=== PATIENT | female | born 1995 | race African-American/Black ===

== ENCOUNTER → 2018-03-07 | Outpatient (CLI) | payer OTHER | END | disposition home or self-care (01) | LOC: US 10:49 | DX: O26.842 Uterine size-date discrepancy, second trimester (principal); O32.1XX0 Maternal care for breech presentation, not applicable or unspecified; Z3A.18 18 weeks gestation of pregnancy | CPT/HCPCS: 76805 ==

== ENCOUNTER → 2018-06-06 | Outpatient (CLI) | payer OTHER | END | disposition home or self-care (01) | LOC: ECHO 08:08 | DX: R42 Dizziness and giddiness (principal) | CPT/HCPCS: 93306 ==

== ENCOUNTER → 2018-06-19 | Outpatient (CLI) | payer OTHER ==
[2015-11-01 14:11] VITALS: BP 129/80
--- NOTE | 2018-06-19 14:59 | RAD ---
EXAM: Obstetrics sonogram. HISTORY: Size and dates discrepancy. TECHNIQUE: Sonographic imaging of a gravid uterus was performed. COMPARISON: None. FINDINGS: There is a single intrauterine fetus in cephalic presentation with a heart rate of 133 beats per minute. The cervix is closed and measures 4.6 cm in length. There is a fundal placenta without evidence of placenta previa. The amniotic fluid index is normal 11.2 cm. The biparietal diameter is 8.39 cm, corresponding with 33 weeks and 5 days. The head circumference is 30.59 cm, corresponding with 34 weeks and 0 days. The abdominal circumference is 29.08 cm, corresponding with 33 weeks and 1 day. The femoral length is 6.75 cm, corresponding with 34 weeks and 5 days. The estimated gestational age patient combined ultrasound measurements is 33 weeks and 6 days and the EDC is 08/01/2018. The estimated weight is 2259 g. This corresponds with the 36th percentile for gestational age based on LMP. IMPRESSION: Single intrauterine fetus in cephalic presentation with with a heart rate of 133 beats parotid and an estimated gestational age based on ultrasound measurements of 33 weeks and 6 days. The estimated weight is at the 36th percentile for gestational age based on LMP. Electronically signed by: Laila Rajput MD (06/19/2018 2:56 PM) [place] [id number]
== END | disposition home or self-care (01) ==
LOC: US 12:14
PROVIDERS: ATTEND Obstetrics & Gynecology
DX: O26.843 Uterine size-date discrepancy, third trimester (principal); Z3A.33 33 weeks gestation of pregnancy
CPT/HCPCS: 76805

== ENCOUNTER 2018-07-23 07:28 | Inpatient (IN) | payer OTHER ==
[2018-07-23] VITALS (7 sets, daily range): BP systolic 91–130; BP diastolic 48–80
[~2018-07-23] VITALS: Ht 152.4 cm; Wt 84.8 kg
[2018-07-23] MEDS ORDERED: OXYTOCIN 30 UNIT/500 ML PREMIX 500 ML IV PRN ×3 (08:45→11:45)
[2018-07-23] MEDS ORDERED: CITRIC ACID/SODIUM CITRATE 30 ML SOLUTION. PO ONE (08:45)
[2018-07-23] MEDS ORDERED: 0.9 % SODIUM CHLORIDE 10 ML DISP.SYRIN. IV PRN ×2 (08:45→11:45)
[2018-07-23] MEDS: IV RINGERS,LACTATED 1000ML 1,000 ML IV SCH ×4 (09:01→20:35)
[2018-07-23 09:10] LABS: BASO # 0.1 x10^3/uL (0.0-0.2); BASO % 0 % (0-3); EOS # 0.2 x10^3/uL (0.0-0.7); EOS % 1 % (0-3); HEMATOCRIT 31.3 % (36.0-47.0); HEMOGLOBIN 10.8 g/dL (12.0-15.5); LYMPH # 3.4 x10^3/uL (1.0-4.8); LYMPH % 18 % (24-48); MEAN CORPUSCULAR HEMOGLOBIN 30 pg (25-35); MEAN CORPUSCULAR HGB CONC 35 g/dL (31-37); MEAN CORPUSCULAR VOLUME 86 fL (79-100); MONO # 1.1 x10^3/uL (0.0-1.1); MONO % 6 % (0-9); NEUT # 13.8 x10^3uL (1.8-7.7); NEUT % 74 % (31-73); PLATELET COUNT 226 x10^3/uL (140-400); RED BLOOD COUNT 3.64 x10^6/uL (3.50-5.40); RED CELL DISTRIBUTION WIDTH 14.2 % (11.5-14.5); WHITE BLOOD COUNT 18.6 x10^3/uL (4.0-11.0)
--- NOTE | 2018-07-23 09:15 | PDOC1 ---
OB - History Hx of Present Care: Good Care Ultrasounds: Normal mid trimester US Obstetrical Complications: None Medical Complications: None Past Family/Social History * Past Medical, Surgical, Family and Obstetric Histories reviewed from chart. Rubella: Immune RPR/VDRL: Negative GBS Status: Negative HBsAG: Negative OB - Chief Complaint & HPI Date of Admission: Date of Admission: Jul 23, 2018 at 07:28 Chief Complaint/History : 3 Para: 2 EGA: 39 Reason for admission: section Indication for : desires repeat Admission Nurse Assessment Rev: Yes OB - Admission Exam Physical Exam Vitals: VS - Last 72 Hours, by Label Date Time Temp Pulse Resp B/P (MAP) Pulse Ox O2 Delivery O2 Flow Rate FiO2 07/23/18 09:06 98.7 97 18 92/48 (63) 100 Room Air 98.7 HEENT: Normal Heart: Regular Rate Lungs: Clear Abdomen: Gravid, Non tender, Soft Extremities: Edema Reflexes: Normal Cervical Dilatation: 1cm Effacement: 50% Station: -3 Membranes: Intact Heart Rate: Normal Accelerations: Accelerations Present Decelerations: No decelerations Contractions on Admission: >10 Minutes Apart Intensity: Mild Text A: 39 wks IUP Previous c/s x 2 P: Admit for repeat c/s. SHERIF ESCALANTE Jr, MD Jul 23, 2018 09:15
[2018-07-23] MEDS ORDERED: BUPIVACAINE MPF 0.75% DEXTROSE 2 ML AMPUL. ONE (10:01)
[2018-07-23] MEDS ORDERED: fentaNYL PF VIAL 100 MCG/2 ML VIAL ONE (10:01)
[2018-07-23] MEDS ORDERED: MORPHINE PF 5 MG/10 ML VIAL. ONE (10:01)
[2018-07-23] MEDS ORDERED: PHENYLEPHRINE in 0.9% NACL PF 1 MG/10 ML SYRINGE. IV ONE (10:01)
[2018-07-23] MEDS ORDERED: OXYTOCIN 10 UNIT/ML VIAL. ONE ×3 (10:02)
[2018-07-23] MEDS ORDERED: ONDANSETRON PF 4 MG/2 ML VIAL. ONE (10:02)
[2018-07-23 10:05] LABS: BILIRUBIN,URINE NEGATIVE (NEG); CLARITY,URINE CLEAR; COLOR,URINE YELLOW; NITRITE,URINE NEGATIVE (NEG); PROTEIN,URINE NEGATIVE (NEG-TRACE)
[2018-07-23 10:09] LABS: SQUAMOUS EPITHELIAL CELL,UR FEW /LPF
[2018-07-23 10:10] LABS: BACTERIA,URINE FEW /HPF (0-FEW); RBC,URINE 0 /HPF (0-2)
[2018-07-23 10:15] LABS: % BANDS 6 % (0-9); % LYMPHS 15 % (24-48); % MONOS 5 % (0-10); % SEGS 74 % (35-66); PLT ESTIMATE ADEQUATE (ADEQUATE)
[2018-07-23] MEDS ORDERED: DEXAMETHASONE SOD PHOS 20 MG/5 ML VIAL. ONE (11:14)
--- NOTE | 2018-07-23 11:42 | PDOC4 ---
OB Operative Note Date: Jul 23, 2018 PRE OP DIAGNOSIS: Previoujs C- section POST OP DIAGNOSIS: Previous C- section OPERATION PERFORMED: R [facility] Surgeon Dr. Navas Anesthesia: Regional (Spinal) Blood Loss 600 ml Specimen placenta and OB Findings: Position (Vertex), Sex (Male), (8/9), Weight (2965 Gram) Complications none Additional Remarks pt. SHERIF Bautista Jr, MD Jul 23, 2018 11:42
[2018-07-23] MEDS ORDERED: SIMETHICONE 80 MG TAB.CHEW PO PRN (11:45)
[2018-07-23] MEDS ORDERED: KETOROLAC 30 MG/ML VIAL. IV PRN (11:45)
[2018-07-23] MEDS ORDERED: diphenhydrAMINE ORAL ELIXIR 12.5 MG/5 ML ML PO PRN (11:45)
[2018-07-23] MEDS ORDERED: MAG HYDROX/ALUMINUM HYD/SIMETH 30 ML ORAL.SUSP PO PRN (11:45)
[2018-07-23] MEDS ORDERED: oxyCODONE/APAP 5/325 1 TAB TABLET PO PRN (11:45)
[2018-07-23] MEDS ORDERED: ZOLPIDEM 5 MG TABLET. PO PRN (11:45)
[2018-07-23] MEDS ORDERED: ONDANSETRON PF 4 MG/2 ML VIAL. IV PRN (11:45)
--- NOTE | 2018-07-23 12:01 | OP ---
DATE OF SURGERY: 07/23/2018 PREOPERATIVE DIAGNOSES: 1. 39 weeks intrauterine . 2. Previous section x 2. POSTOPERATIVE DIAGNOSES: 1. 39 weeks intrauterine . 2. Previous section x 2. PROCEDURE: Repeat low transverse section. SURGEON: Sherif Navas MD. ANESTHESIA: Spinal. ESTIMATED BLOOD LOSS: 600 mL. COMPLICATIONS: None. FINDINGS: Viable male , Apgars 8 and 9, weight 2965 grams. Three-vessel cord placenta delivered manually intact. SUMMARY: A 23-year-old 3, para 2 at 39 weeks, presented for repeat section. She was counseled on the risks, benefits and expectations and voiced a clear understanding to proceed. DESCRIPTION OF PROCEDURE: The patient was taken to surgery suite and placed in dorsal supine position. She was prepped with ChloraPrep and draped in sterile fashion. After adequate anesthesia, a Pfannenstiel skin incision was made with scalpel down to and through the fascia. Fascia was extended laterally using curved Walden scissors. The superior edge of the fascia was grasped with 2 Caleb clamps and dissected free of the abdominal rectus muscle using blunt dissection along with Bovie cautery. The same process took place inferiorly. The peritoneum was already entered and further dissected with Metzenbaum scissors and curved Walden scissors inferiorly. There were a few peritoneal adhesions to the uterus, which were dissected using blunt dissection along with Bovie cautery and Metzenbaum scissors. The Skinny ring retractor was placed. A low transverse hysterotomy incision was made with scalpel down to the amniotic sac. Hysterotomy incision was extended laterally and superiorly digitally. Amniotomy was performed with Allis clamp, which elicited a moderate amount of clear fluid. With the aid of fundal pressure, the 's head was delivered in a smooth atraumatic manner. With additional fundal pressure, the anterior shoulder was delivered followed by posterior shoulder and rest of male was delivered. Infant was suctioned with a bulb syringe orally and nasally, umbilical cord was clamped twice and cut and viable male was handed to waiting nursing staff. Umbilical cord blood was then obtained. Three-vessel cord placenta was delivered manually intact. The uterus was then exteriorized and cleared of clot and debris with a moist lap. Hysterotomy incision was reapproximated using 1-0 Vicryl suture in running locked fashion. Uterus palpated firm. Fallopian tubes and ovaries appeared normal bilaterally. Posterior cul-de-sac was cleared of clot and debris with a moist lap. The uterus then returned to the abdomen. The pericolic gutters were cleared of clot and debris with a moist lap. Interceed was placed over the hysterotomy incision in an inverted T fashion. The Skinny ring retractor was removed. The peritoneum was reapproximated with 1-0 Vicryl suture in running fashion. Fascia was reapproximated using 0 Vicryl suture in running fashion. Skin was reapproximated using 4-0 Vicryl suture in subcuticular manner. The patient tolerated the procedure well and was sent to recovery room in stable condition. Sponge and needle count correct x 3. SHERIF NAVAS MD DR: NASIM/víctor JOB#: [id number] / [id number]
[2018-07-23] MEDS: KETOROLAC 30 MG/ML VIAL. IV PRN ×2 (13:03→19:46)
[2018-07-23] MEDS ORDERED: METOCLOPRAMIDE HCL 10 MG/2 ML VIAL. IV PRN (14:15)
[2018-07-23] MEDS: FERROUS SULFATE 325 MG TABLET. PO SCH (17:00)
[2018-07-24 01:02] VITALS: BP 109/62
[2018-07-24] MEDS: KETOROLAC 30 MG/ML VIAL. IV PRN (02:47)
[2018-07-24 05:53] LABS: BASO % 0 % (0-3); EOS # 0.1 x10^3/uL (0.0-0.7); EOS % 1 % (0-3); HEMATOCRIT 22.3 % (36.0-47.0); HEMOGLOBIN 7.7 g/dL (12.0-15.5); LYMPH # 2.8 x10^3/uL (1.0-4.8); LYMPH % 19 % (24-48); MEAN CORPUSCULAR HEMOGLOBIN 30 pg (25-35); MEAN CORPUSCULAR HGB CONC 35 g/dL (31-37); MEAN CORPUSCULAR VOLUME 87 fL (79-100); MONO # 1.1 x10^3/uL (0.0-1.1); MONO % 8 % (0-9); NEUT # 10.5 x10^3uL (1.8-7.7); NEUT % 72 % (31-73); PLATELET COUNT 174 x10^3/uL (140-400); RED BLOOD COUNT 2.57 x10^6/uL (3.50-5.40); RED CELL DISTRIBUTION WIDTH 13.7 % (11.5-14.5); WHITE BLOOD COUNT 14.6 x10^3/uL (4.0-11.0)
[2018-07-24 06:00] VITALS: BP 113/67
[2018-07-24] MEDS: IBUPROFEN 800 MG TABLET. PO PRN ×3 (08:31→23:48)
[2018-07-24] MEDS: FERROUS SULFATE 325 MG TABLET. PO SCH ×2 (08:32→16:18)
[2018-07-24] MEDS: DOCUSATE SODIUM 100 MG CAPSULE. PO PRN ×2 (08:32→19:34)
[2018-07-24] MEDS: GABAPENTIN 300 MG CAPSULE. PO SCH ×4 (08:33→23:49)
[2018-07-24 11:00] VITALS: BP 113/68
[2018-07-24] MEDS: HYDROcodone/APAP 5/325MG 1 TAB TABLET PO PRN ×4 (11:59→23:48)
--- NOTE | 2018-07-24 12:51 | PDOC ---
OB Progress Note Date of Service 07/24/18 Time of Evaluation 1250 Notes Pt. feeling well. Pain better controlled. Lab Laboratory Tests Test 07/23/18 08:40 07/23/18 09:50 07/24/18 04:50 White Blood Count 18.6 x10^3/uL (4.0-11.0) 14.6 x10^3/uL (4.0-11.0) Red Blood Count 3.64 x10^6/uL (3.50-5.40) 2.57 x10^6/uL (3.50-5.40) Hemoglobin 10.8 g/dL (12.0-15.5) 7.7 g/dL (12.0-15.5) Hematocrit 31.3 % (36.0-47.0) 22.3 % (36.0-47.0) Mean Corpuscular Volume 86 fL (79-100) 87 fL (79-100) Mean Corpuscular Hemoglobin 30 pg (25-35) 30 pg (25-35) Mean Corpuscular Hemoglobin Concent 35 g/dL (31-37) 35 g/dL (31-37) Red Cell Distribution Width 14.2 % (11.5-14.5) 13.7 % (11.5-14.5) Platelet Count 226 x10^3/uL (140-400) 174 x10^3/uL (140-400) Neutrophils (%) (Auto) 74 % (31-73) 72 % (31-73) Lymphocytes (%) (Auto) 18 % (24-48) 19 % (24-48) Monocytes (%) (Auto) 6 % (0-9) 8 % (0-9) Eosinophils (%) (Auto) 1 % (0-3) 1 % (0-3) Basophils (%) (Auto) 0 % (0-3) 0 % (0-3) Neutrophils # (Auto) 13.8 x10^3uL (1.8-7.7) 10.5 x10^3uL (1.8-7.7) Lymphocytes # (Auto) 3.4 x10^3/uL (1.0-4.8) 2.8 x10^3/uL (1.0-4.8) Monocytes # (Auto) 1.1 x10^3/uL (0.0-1.1) 1.1 x10^3/uL (0.0-1.1) Eosinophils # (Auto) 0.2 x10^3/uL (0.0-0.7) 0.1 x10^3/uL (0.0-0.7) Basophils # (Auto) 0.1 x10^3/uL (0.0-0.2) 0.0 x10^3/uL (0.0-0.2) Segmented Neutrophils % 74 % (35-66) Band Neutrophils % 6 % (0-9) Lymphocytes % 15 % (24-48) Monocytes % 5 % (0-10) Platelet Estimate Adequate (ADEQUATE) Treponema pallidum Antibody Nonreactive (Nonreactive) Urine Collection Type U cath Urine Color Yellow Urine Clarity Clear Urine pH 7.0 Urine Specific [place] 1.020 Urine Protein Negative mg/dL (NEG-TRACE) Urine Glucose (UA) Negative mg/dL (NEG) Urine Ketones (Stick) Negative mg/dL (NEG) Urine Blood Negative (NEG) Urine Nitrite Negative (NEG) Urine Bilirubin Negative (NEG) Urine Urobilinogen Dipstick 1.0 mg/dL (0.2 mg/dL) Urine Leukocyte Esterase Trace (NEG) Urine RBC 0 /HPF (0-2) Urine WBC 5-10 /HPF (0-4) Urine Squamous Epithelial Cells Few /LPF Urine Transitional Epithelial Cells Few /LPF Urine Bacteria Few /HPF (0-FEW) Laboratory Tests Test 07/24/18 04:50 White Blood Count 14.6 x10^3/uL (4.0-11.0) Red Blood Count 2.57 x10^6/uL (3.50-5.40) Hemoglobin 7.7 g/dL (12.0-15.5) Hematocrit 22.3 % (36.0-47.0) Mean Corpuscular Volume 87 fL (79-100) Mean Corpuscular Hemoglobin 30 pg (25-35) Mean Corpuscular Hemoglobin Concent 35 g/dL (31-37) Red Cell Distribution Width 13.7 % (11.5-14.5) Platelet Count 174 x10^3/uL (140-400) Neutrophils (%) (Auto) 72 % (31-73) Lymphocytes (%) (Auto) 19 % (24-48) Monocytes (%) (Auto) 8 % (0-9) Eosinophils (%) (Auto) 1 % (0-3) Basophils (%) (Auto) 0 % (0-3) Neutrophils # (Auto) 10.5 x10^3uL (1.8-7.7) Lymphocytes # (Auto) 2.8 x10^3/uL (1.0-4.8) Monocytes # (Auto) 1.1 x10^3/uL (0.0-1.1) Eosinophils # (Auto) 0.1 x10^3/uL (0.0-0.7) Basophils # (Auto) 0.0 x10^3/uL (0.0-0.2) Medications Current Medications Ketorolac Tromethamine (Toradol 30mg Vial) 30 mg PRN Q6HRS PRN IV PAIN Last administered on 07/24/18at 02:47; Start 07/23/18 at 08:00; Stop 07/24/18 at 11:17 ; Status DC Sodium Chloride (Normal Saline Flush) 3 ml QSHIFT PRN IV AFTER MEDS AND BLOOD DRAWS; Start 07/23/18 at 08:45; Status Cancel Ringer's Solution 1,000 ml @ 125 mls/hr Q8H IV Last administered on 07/23/18at 20:35; Start 07/23/18 at 08:42 Oxytocin/Sodium Chloride 500 ml @ 0 mls/hr CONT PRN IV SEE I/O RECORD; Start at 08:45; Stop 07/24/18 at 11:18; Status DC Oxytocin/Sodium Chloride 500 ml @ 0 mls/hr CONT PRN PRN IV Post delivery bleeding; Start 07/23/18 at 08:45 Cefazolin Sodium/ Dextrose 50 ml @ 100 mls/hr 1X ONCE IV Last administered on 07/23/18at 09:20; Start 07/23/18 at 08:45; Stop 07/23/18 at 09:14; Status DC Citric Acid/ Sodium Citrate (Bicitra) 30 ml 1X ONCE PO Last administered on at 09:19; Start 07/23/18 at 08:45; Stop 07/23/18 at 09:12; Status DC Morphine Sulfate (Morphine Preservative Free) 5 mg STK-MED ONCE .ROUTE ; Start 07/23/18 at 10:01; Stop 07/23/18 at 10:02; Status DC Fentanyl Citrate (Fentanyl 2ml Vial) 100 mcg STK-MED ONCE .ROUTE ; Start at 10:01; Stop 07/23/18 at 10:02; Status DC Bupivacaine HCl/ Dextrose (Marcaine Spinal 0.75%) 2 ml STK-MED ONCE .ROUTE ; Start 07/23/18 at 10:01; Stop 07/23/18 at 10:02; Status DC Phenylephrine HCl (PHENYLEPHRINE in 0.9% NACL PF) 1 mg STK-MED ONCE IV ; Start 07/23/18 at 10:01; Stop 07/23/18 at 10:02; Status DC Ephedrine Sulfate (Akovaz) 50 mg STK-MED ONCE .ROUTE ; Start 07/23/18 at 10:01; Stop 07/23/18 at 10:02; Status DC Oxytocin (Pitocin) 10 unit STK-MED ONCE .ROUTE ; Start 07/23/18 at 10:02; Stop 07/23/18 at 10:03; Status DC Oxytocin (Pitocin) 10 unit STK-MED ONCE .ROUTE ; Start 07/23/18 at 10:02; Stop 07/23/18 at 10:03; Status DC Oxytocin (Pitocin) 10 unit STK-MED ONCE .ROUTE ; Start 07/23/18 at 10:02; Stop 07/23/18 at 10:03; Status DC Ondansetron HCl (Zofran) 4 mg STK-MED ONCE .ROUTE ; Start 07/23/18 at 10:02; Stop 07/23/18 at 10:03; Status DC Dexamethasone Sodium Phosphate (Decadron) 20 mg STK-MED ONCE .ROUTE ; Start at 11:14; Stop 07/23/18 at 11:15; Status DC Sodium Chloride (Normal Saline Flush) 3 ml QSHIFT PRN IV AFTER MEDS AND BLOOD DRAWS; Start 07/23/18 at 11:45 Oxytocin/Sodium Chloride 500 ml @ 125 mls/hr CONT PRN IV EXCESSIVE POST- BLEEDING; Start 07/23/18 at 11:45; Stop 07/23/18 at 19:44; Status DC Ibuprofen (Motrin) 800 mg PRN Q8HRS PRN PO INFLAMMATION Last administered on at 08:31; Start 07/23/18 at 11:45 Ondansetron HCl (Zofran) 4 mg PRN Q6HRS PRN IV NAUSEA/VOMITING Last administered on 07/23/18at 13:11; Start 07/23/18 at 11:45 Docusate Sodium (Colace) 100 mg PRN BID PRN PO CONSTIPATION Last administered on 07/24/18at 08:32; Start 07/23/18 at 11:45 Al Hydroxide/Mg Hydroxide (Mylanta Plus Xs) 30 ml PRN Q4HRS PRN PO HEARTBURN / GAS; Start 07/23/18 at 11:45 Simethicone (Gas-X) 80 mg PRN AFTMEALHC PRN PO GAS / BLOATING; Start 07/23/18 at 11:45 Diphenhydramine HCl (Benadryl Oral Elixir) 12.5 mg PRN Q6HRS PRN PO ITCHING; Start 07/23/18 at 11:45 Ferrous Sulfate (Feosol) 325 mg BIDWMEALS PO Last administered on 07/24/18at 08: 32; Start 07/23/18 at 17:00 Zolpidem Tartrate (Ambien) 5 mg PRN QHS PRN PO INSOMNIA, MAY REPEAT X1; Start 07/23/18 at 11:45 Oxycodone/ Acetaminophen (Percocet 5/325) 2 tab PRN Q4HRS PRN PO MODERATE PAIN , SEVERE PAIN; Start 07/23/18 at 11:45; Status Cancel Ketorolac Tromethamine (Toradol 30mg Vial) 30 mg PRN Q6HRS PRN IV PAIN; Start 07/23/18 at 11:45; Stop 07/28/18 at 11:44 Metoclopramide HCl (Reglan Vial) 10 mg PRN Q8HRS PRN IV NAUSEA/VOMITING Last administered on 07/23/18at 14:30; Start 07/23/18 at 14:15 Gabapentin (Neurontin) 600 mg TID PO Last administered on 07/24/18at 08:33; Start 07/24/18 at 09:00 Acetaminophen/ Hydrocodone Bitart (Lortab 5/325) 2 tab PRN Q4HRS PRN PO PAIN Last administered on 07/24/18at 11:59; Start 07/24/18 at 11:45 Exam Abd: soft, mild tenderness, fundus firm Incision site: clean, dry and intact Assessment POD#1 s/p repeat c/s Plan of Care: Continue current Tx, Mgmt SHERIF ESCALANTE Jr, MD Jul 24, 2018 12:51
[2018-07-24 15:15] VITALS: BP 108/61
[2018-07-24 18:35] VITALS: BP 116/70
[2018-07-24 20:50] VITALS: BP 99/54
[2018-07-25 05:12] VITALS: BP 124/61
[2018-07-25] MEDS: IBUPROFEN 800 MG TABLET. PO PRN ×2 (07:45→16:39)
[2018-07-25] MEDS: FERROUS SULFATE 325 MG TABLET. PO SCH (08:00)
[2018-07-25 10:11] VITALS: BP 130/52
[2018-07-25] MEDS: DOCUSATE SODIUM 100 MG CAPSULE. PO PRN (10:50)
[2018-07-25] MEDS: HYDROcodone/APAP 5/325MG 1 TAB TABLET PO PRN ×2 (10:51→16:39)
[2018-07-25] MEDS ORDERED: DIPHTH,PERTUSS(ACELL),TET TOX 0.5 ML DISP.SYRIN. VAX IM ONE (13:00)
[2018-07-25] MEDS: GABAPENTIN 300 MG CAPSULE. PO SCH (14:00)
[2018-07-25 16:28] VITALS: BP 120/71
--- NOTE | 2018-07-25 16:56 | PDOC3 ---
OB DISCHARGE SUMMARY DATE OF ADMISSION: 07/23/18 DATE OF DISCHARGE: 07/25/18 REASON FOR ADMISSION: section INTRAPARTUM PROCEDURES: : Low Cerv Trans DISCHARGE DIAGNOSIS: Term Delivered DISCHARGE INFORMATION: Activity (ad dimas), Diet (regular), Instructions (pelvic rest x 6 wks, no driving x 2 wks, and no lifting > 20lbs. x 4 wks.) HOSPITAL COURSE Term gestation presented for repeat c/s delivered without complications. SHERIF ESCALANTE Jr, MD Jul 25, 2018 16:56
--- NOTE | 2018-07-25 16:57 | DISCH ---
DISCHARGE INSTRUCTIONS Condition on Discharge Condition on Discharge: Stable Activity After Discharge Activity Instructions for Disc: Activity as tolerated, Avoid exertion Bathing Instructions: No Tub Bath until see Lifting Instructions after Dis: No heavy lifting, No pulling or pushing, Do not lift >10 pounds Driving Instructions after Dis: No driving for 2 weeks Weight Bearing Status after Di: No restrictions Sexual Activity Restrictions: nothing per vagina for 6wks Diet after Discharge Diet after Discharge: Regular Diet Texture: Regular Wound Incision Care Wound/Incision Care: Ice to area for comfort Checks after Discharge Checks after discharge: Check your Temp as needed Contacting the DRDustin after DC Call your doctor for: Concerns you may have Follow-Up Follow Up With: Dr. Navas in 2 wks Treatment/Equipment after DC Adaptive Equipment Issued: None SHERIF NAVAS Jr, MD Jul 25, 2018 16:57
[2018-07-25] MEDS ORDERED: HYDR-971 PO (17:00)
[2018-07-25] MEDS ORDERED: IBUP800T19 PO (17:00)
[2018-07-25] MEDS ORDERED: DOCU-109 PO (17:00)
== END 2018-07-25 17:00 | disposition home or self-care (01) | DRG 765 ==
LOC: 3 SO LND 07:28 → 3 NORTH 14:00
PROVIDERS: ADMIT Obstetrics & Gynecology; ATTEND Obstetrics & Gynecology
PROC: 10D00Z1 Extraction of Products of Conception, Low, Open Approach (ICD-10-PCS; principal; 2018-07-23)
DX: O34.211 Maternal care for low transverse scar from previous cesarean delivery (principal); D62 Acute posthemorrhagic anemia; Z37.0 Single live birth; Z3A.39 39 weeks gestation of pregnancy; O99.02 Anemia complicating childbirth
CPT/HCPCS: 36415; 81001; 85007; 85025; 86592; 86850; 86900; 86901; 87086; 90715; C1781; J0690; J1100; J1885; J2270; J2370; J2405; J2590; J2765; J3010; J7120

== ENCOUNTER 2019-03-15 01:38 | Emergency (ER) | payer OTHER ==
[~2019-03-15] VITALS: Ht 152.4 cm; Wt 84.4 kg
[~2019-03-15 01:38] MED LIST: DOCU-109 PO; HYDR-3164 PO; IBUP800T19 PO
[2019-03-15 02:05] LABS: BILIRUBIN,URINE NEGATIVE (NEG); CLARITY,URINE CLEAR; COLOR,URINE YELLOW; NITRITE,URINE NEGATIVE (NEG); PH,URINE 6.5; PROTEIN,URINE NEGATIVE (NEG-TRACE)
[2019-03-15 02:17] LABS: BACTERIA,URINE 0 /HPF (0-FEW); RBC,URINE 0 /HPF (0-2); SQUAMOUS EPITHELIAL CELL,UR FEW /LPF; WBC,URINE OCC /HPF (0-4)
[2019-03-15 02:34] LABS: BASO % 0 % (0-3); EOS # 0.2 x10^3/uL (0.0-0.7); EOS % 2 % (0-3); HEMATOCRIT 35.4 % (36.0-47.0); HEMOGLOBIN 11.9 g/dL (12.0-15.5); LYMPH # 2.9 x10^3/uL (1.0-4.8); LYMPH % 27 % (24-48); MEAN CORPUSCULAR HEMOGLOBIN 28 pg (25-35); MEAN CORPUSCULAR HGB CONC 34 g/dL (31-37); MEAN CORPUSCULAR VOLUME 83 fL (79-100); MONO # 0.7 x10^3/uL (0.0-1.1); MONO % 6 % (0-9); NEUT % 65 % (31-73); PLATELET COUNT 305 x10^3/uL (140-400); RED BLOOD COUNT 4.28 x10^6/uL (3.50-5.40); RED CELL DISTRIBUTION WIDTH 15.1 % (11.5-14.5); WHITE BLOOD COUNT 10.8 x10^3/uL (4.0-11.0)
[2019-03-15 03:13] VITALS: BP 119/77
--- NOTE | 2019-03-15 04:48 | PHYS DOC ---
Past Medical History Past Medical History: No Pertinent History Past Surgical History: Alcohol Use: None Drug Use: None Adult General Chief Complaint Chief Complaint: VAGINAL BLEEDING HPI HPI Patient is a 23 year old G4, P3 -[place] female with estimated 5 week gestation who presents with persistent vaginal spotting past 3 days. Patient seen at outside ED 2 days ago diagnosed with positive hCG and IUP with possible miscarriage.atient reports light spotting of bright red blood in blood with wiping. Patient is concerned that she may be miscarrying. Denies chest pain shortness breath dizziness lightheadedness. Patient contacted her [employer] OPERATOR's afternoon was instructed to come to the ED for further evaluation. P [] Review of Systems Review of Systems ROS as per HPI. All other systems were reviewed and found to be within normal limits, except as documented in this note. Allergies Allergies Allergies Coded Allergies Type Severity Reaction Last Updated Verified acetaminophen Allergy Intermediate [place]/ vomiting 07/23/18 Yes oxycodone Allergy Intermediate [place]/ vomiting 07/23/18 Yes Physical Exam Physical Exam Constitutional: Well developed, well nourished, no acute distress, non-toxic appearance. [] HENT: Normocephalic, atraumatic, bilateral external ears normal, oropharynx moist, no oral exudates, nose normal. [] Eyes: PERRLA, EOMI, conjunctiva normal, no discharge. [] Neck: Normal range of motion, no tenderness, supple, no stridor. [] Cardiovascular:Heart rate regular rhythm, no murmur [] Lungs & Thorax: Bilateral breath sounds clear to auscultation [] Abdomen: Bowel sounds normal, soft, no tenderness. [] Skin: Warm, dry. [] Back: No tenderness. [] Extremities: No tenderness, no cyanosis, no clubbing, ROM intact, no edema. [] Neurologic: Alert and oriented X 3, normal motor function, normal sensory function, no focal deficits noted. [] Psychologic: Affect normal, judgement normal, mood normal. [] Current Patient Data Vital Signs Vital Signs Date Time Temp Pulse Resp B/P (MAP) Pulse Ox O2 Delivery O2 Flow Rate FiO2 03/15/19 03:13 87 16 119/77 (91) 99 Room Air 03/15/19 02:11 98.6 98.6 Lab Values Laboratory Tests Test 03/15/19 01:42 03/15/19 01:46 03/15/19 02:25 Urine Collection Type Unknown Urine Color Yellow Urine Clarity Clear Urine pH 6.5 Urine Specific [place] 1.010 Urine Protein Negative mg/dL (NEG-TRACE) Urine Glucose (UA) Negative mg/dL (NEG) Urine Ketones (Stick) Negative mg/dL (NEG) Urine Blood Negative (NEG) Urine Nitrite Negative (NEG) Urine Bilirubin Negative (NEG) Urine Urobilinogen Dipstick 1.0 mg/dL (0.2 mg/dL) Urine Leukocyte Esterase Negative (NEG) Urine RBC 0 /HPF (0-2) Urine WBC Occ /HPF (0-4) Urine Squamous Epithelial Cells Few /LPF Urine Bacteria 0 /HPF (0-FEW) Urine Mucus Slight /LPF POC Urine HCG, Qualitative Hcg positive (Negative) White Blood Count 10.8 x10^3/uL (4.0-11.0) Red Blood Count 4.28 x10^6/uL (3.50-5.40) Hemoglobin 11.9 g/dL (12.0-15.5) L Hematocrit 35.4 % (36.0-47.0) L Mean Corpuscular Volume 83 fL (79-100) Mean Corpuscular Hemoglobin 28 pg (25-35) Mean Corpuscular Hemoglobin Concent 34 g/dL (31-37) Red Cell Distribution Width 15.1 % (11.5-14.5) H Platelet Count 305 x10^3/uL (140-400) Neutrophils (%) (Auto) 65 % (31-73) Lymphocytes (%) (Auto) 27 % (24-48) Monocytes (%) (Auto) 6 % (0-9) Eosinophils (%) (Auto) 2 % (0-3) Basophils (%) (Auto) 0 % (0-3) Neutrophils # (Auto) 7.0 x10^3uL (1.8-7.7) Lymphocytes # (Auto) 2.9 x10^3/uL (1.0-4.8) Monocytes # (Auto) 0.7 x10^3/uL (0.0-1.1) Eosinophils # (Auto) 0.2 x10^3/uL (0.0-0.7) Basophils # (Auto) 0.0 x10^3/uL (0.0-0.2) Maternal Serum HCG Beta Subunit 6286 mIU/mL (0-5) H Laboratory Tests 03/15/19 02:25 EKG EKG [] Radiology/Procedures Radiology/Procedures [] Course & Med Decision Making Course & Med Decision Making Pertinent Labs and Imaging studies reviewed. (See chart for details) [Threatened , recommend close OB follow up.] Dragon Disclaimer Dragon Disclaimer This electronic medical record was generated, in whole or in part, using a voice recognition dictation system. Departure Departure Impression: Primary Impression: Threatened miscarriage in early Disposition: 01 HOME, SELF-CARE Condition: STABLE Patient Instructions: Threatened Miscarriage, [id number] Additional Instructions: Please obtain medical records from [facility] and follow up with Dr. Navas for further evaluation tomorrow or early next week. ELSA SINGLETARY DO March 15, 2019 04:48
== END 2019-03-15 04:07 | disposition home or self-care (01) ==
LOC: ER 01:38
DX: O20.0 Threatened abortion (principal); Z3A.01 Less than 8 weeks gestation of pregnancy; Z88.5 Allergy status to narcotic agent; Z88.6 Allergy status to analgesic agent
CPT/HCPCS: 36415; 81001; 81025; 84702; 85025; 99284

== ENCOUNTER → 2019-07-15 | Outpatient (CLI) | payer OTHER ==
--- NOTE | 2019-07-15 17:51 | KCIC ---
PREG MORE THAN OR EQ TO 14 WKS History: Uterine size discrepancy Comparison: None. Findings: Multiple sonographic images of the uterus are submitted. Cervix measured 5.5 cm. There is a single intrauterine fetus in cephalic presentation. There is demonstrable cardiac activity 149 bpm. There is anterior and fundal placenta. Amniotic fluid volume is within normal limits, estimated 19.5 cm. movement was noted by technologist. stomach was visualized. There is visualization of bladder. Three-vessel cord was demonstrated. There is four-chamber view of the heart. Male genitalia were apparently demonstrated. 2 upper and lower extremities were visualized. There is no significant abnormality of the visualized spine. 2 kidneys were visualized. There is no abnormality demonstrated of the maternal adnexal regions, ovaries not seen. Biometry data are as follows: Biparietal diameter 5.36 cm corresponds 22 weeks 2 days Head circumference 20.67 cm corresponds with 22 weeks 5 days Abdominal circumference 19.45 cm corresponds with 24 weeks 1 day Femur length 4.03 cm corresponds with 23 weeks 0 days And just ultrasound age 23 weeks 0 days with estimated delivery date of 11/11/2019 LMP age 23 weeks 2 days with estimated delivery date of 11/09/2019 Estimated weight 601 g +/- 89 g corresponding with the 44th percentile. Impression: 1. There is a single viable intrauterine fetus in cephalic presentation with adjusted ultrasound age of 23 weeks 0 days with estimated delivery date of 11/11/2019. Electronically signed by: Glen Blackwood MD (07/15/2019 5:48 PM) [id number]
== END | disposition home or self-care (01) ==
LOC: KCIC US 10:55
PROVIDERS: ATTEND Obstetrics & Gynecology
DX: O26.842 Uterine size-date discrepancy, second trimester (principal); Z3A.23 23 weeks gestation of pregnancy
CPT/HCPCS: 76805

== ENCOUNTER 2019-10-13 12:07 | Observation (INO) | payer OTHER ==
[~2019-10-13] VITALS: Ht 152.4 cm; Wt 96.2 kg
[2019-10-13] MEDS ORDERED: IV RINGERS,LACTATED 1000ML 1,000 ML IV SCH (12:27)
[2019-10-13 13:26] LABS: BILIRUBIN,URINE SMALL (NEG); CLARITY,URINE CLEAR; NITRITE,URINE NEGATIVE (NEG); PROTEIN,URINE 30 mg/dL (NEG-TRACE)
[2019-10-13 13:40] LABS: COLOR,URINE DK YELLOW
[2019-10-13 13:42] LABS: BACTERIA,URINE FEW /HPF (0-FEW); RBC,URINE 0 /HPF (0-2); SQUAMOUS EPITHELIAL CELL,UR MANY /LPF
[2019-10-13 13:49] LABS: INFLUENZA A PATIENT NEGATIVE (NEGATIVE); INFLUENZA B PATIENT NEGATIVE (NEGATIVE)
== END 2019-10-13 14:25 | disposition home or self-care (01) ==
LOC: 3 SO LND 12:07
PROVIDERS: ADMIT Obstetrics & Gynecology; ATTEND Obstetrics & Gynecology
DX: O36.8130 Decreased fetal movements, third trimester, not applicable or unspecified (principal); O26.893 Other specified pregnancy related conditions, third trimester; R50.9 Fever, unspecified; Z3A.36 36 weeks gestation of pregnancy
CPT/HCPCS: 81001; 87804; G0378; G0379; J7120

== ENCOUNTER 2019-10-15 09:35 | Observation (INO) | payer OTHER ==
[2019-10-15 11:12] LABS: BASO % 0 % (0-3); EOS # 0.4 x10^3/uL (0.0-0.7); EOS % 7 % (0-3); HEMATOCRIT 34.6 % (36.0-47.0); HEMOGLOBIN 11.9 g/dL (12.0-15.5); LYMPH # 1.6 x10^3/uL (1.0-4.8); LYMPH % 24 % (24-48); MEAN CORPUSCULAR HEMOGLOBIN 30 pg (25-35); MEAN CORPUSCULAR HGB CONC 35 g/dL (31-37); MEAN CORPUSCULAR VOLUME 87 fL (79-100); MONO # 0.8 x10^3/uL (0.0-1.1); MONO % 13 % (0-9); NEUT # 3.8 x10^3/uL (1.8-7.7); NEUT % 57 % (31-73); PLATELET COUNT 187 x10^3/uL (140-400); RED BLOOD COUNT 3.96 x10^6/uL (3.50-5.40); RED CELL DISTRIBUTION WIDTH 13.3 % (11.5-14.5); WHITE BLOOD COUNT 6.7 x10^3/uL (4.0-11.0)
[2019-10-15 11:24] LABS: CREATININE 0.7 mg/dL (0.6-1.0); GFR 124.4; POTASSIUM 3.4 mmol/L (3.5-5.1)
[2019-10-15 11:29] LABS: ALBUMIN 2.4 g/dL (3.4-5.0); ALBUMIN/GLOBULIN RATIO 0.6 (1.0-1.7); TOTAL BILIRUBIN 0.3 mg/dL (0.2-1.0); TOTAL PROTEIN 6.2 g/dL (6.4-8.2)
[2019-10-15 12:31] LABS: CREATININE,RANDOM URINE 396.2 mg/dL (Not Establ.)
== END 2019-10-15 13:15 | disposition home or self-care (01) ==
LOC: 3 SO LND 09:35
PROVIDERS: ADMIT Obstetrics & Gynecology; ATTEND Obstetrics & Gynecology
DX: O13.3 Gestational [pregnancy-induced] hypertension without significant proteinuria, third trimester (principal); Z3A.36 36 weeks gestation of pregnancy
CPT/HCPCS: 36415; 80053; 82570; 84156; 85025; G0378; G0379

== ENCOUNTER 2019-10-20 16:36 | Observation (INO) | payer OTHER ==
[2019-10-20 17:46] LABS: BILIRUBIN,URINE NEGATIVE (NEG); CLARITY,URINE CLEAR; COLOR,URINE YELLOW; NITRITE,URINE NEGATIVE (NEG); PH,URINE 6.5; PROTEIN,URINE NEGATIVE (NEG-TRACE); UROBILINOGEN,URINE 0.2 mg/dL (0.2 mg/dL)
[2019-10-20 17:49] LABS: CREATININE,RANDOM URINE 151.3 mg/dL (Not Establ.)
[2019-10-20 17:55] LABS: BACTERIA,URINE 0 /HPF (0-FEW); SQUAMOUS EPITHELIAL CELL,UR MOD /LPF
[2019-10-20 17:56] LABS: BASO % 0 % (0-3); EOS # 0.3 x10^3/uL (0.0-0.7); EOS % 3 % (0-3); HEMATOCRIT 30.9 % (36.0-47.0); HEMOGLOBIN 10.5 g/dL (12.0-15.5); LYMPH # 2.2 x10^3/uL (1.0-4.8); LYMPH % 20 % (24-48); MEAN CORPUSCULAR HEMOGLOBIN 30 pg (25-35); MEAN CORPUSCULAR HGB CONC 34 g/dL (31-37); MEAN CORPUSCULAR VOLUME 87 fL (79-100); MONO # 0.7 x10^3/uL (0.0-1.1); MONO % 6 % (0-9); NEUT # 7.6 x10^3/uL (1.8-7.7); NEUT % 70 % (31-73); PLATELET COUNT 238 x10^3/uL (140-400); RED BLOOD COUNT 3.58 x10^6/uL (3.50-5.40); RED CELL DISTRIBUTION WIDTH 12.9 % (11.5-14.5); WHITE BLOOD COUNT 10.9 x10^3/uL (4.0-11.0)
[2019-10-20 18:06] LABS: CALCIUM 8.1 mg/dL (8.5-10.1); CREATININE 0.8 mg/dL (0.6-1.0); GFR 106.6; POTASSIUM 3.9 mmol/L (3.5-5.1)
[2019-10-20 18:12] LABS: ALBUMIN 2.2 g/dL (3.4-5.0); ALBUMIN/GLOBULIN RATIO 0.7 (1.0-1.7); TOTAL BILIRUBIN 0.1 mg/dL (0.2-1.0); TOTAL PROTEIN 5.3 g/dL (6.4-8.2)
== END 2019-10-20 19:19 | disposition home or self-care (01) ==
LOC: 3 SO LND 16:36
PROVIDERS: ADMIT Obstetrics & Gynecology; ATTEND Obstetrics & Gynecology
DX: O16.3 Unspecified maternal hypertension, third trimester (principal); Z3A.36 36 weeks gestation of pregnancy
CPT/HCPCS: 36415; 80053; 81001; 82570; 84156; 85025; G0378; G0379

== ENCOUNTER 2019-10-28 15:47 | Observation (INO) | payer OTHER ==
[2019-10-28] MEDS ORDERED: IV RINGERS,LACTATED 1000ML 1,000 ML IV SCH (16:39)
[2019-10-28 17:15] LABS: BILIRUBIN,URINE NEGATIVE (NEG); CLARITY,URINE CLEAR; COLOR,URINE YELLOW; NITRITE,URINE NEGATIVE (NEG); PH,URINE 6.5; PROTEIN,URINE NEGATIVE (NEG-TRACE)
[2019-10-28 17:25] LABS: BACTERIA,URINE FEW /HPF (0-FEW); RBC,URINE 0 /HPF (0-2); SQUAMOUS EPITHELIAL CELL,UR MOD /LPF
[2019-10-28 17:33] LABS: CREATININE,RANDOM URINE 201.6 mg/dL (Not Establ.)
[2019-10-28 17:55] LABS: BASO # 0.1 x10^3/uL (0.0-0.2); BASO % 1 % (0-3); EOS # 0.2 x10^3/uL (0.0-0.7); EOS % 2 % (0-3); HEMATOCRIT 29.5 % (36.0-47.0); HEMOGLOBIN 10.2 g/dL (12.0-15.5); LYMPH # 2.1 x10^3/uL (1.0-4.8); LYMPH % 20 % (24-48); MEAN CORPUSCULAR HEMOGLOBIN 30 pg (25-35); MEAN CORPUSCULAR HGB CONC 35 g/dL (31-37); MEAN CORPUSCULAR VOLUME 87 fL (79-100); MONO # 0.7 x10^3/uL (0.0-1.1); MONO % 7 % (0-9); NEUT # 7.4 x10^3/uL (1.8-7.7); NEUT % 70 % (31-73); PLATELET COUNT 169 x10^3/uL (140-400); RED BLOOD COUNT 3.38 x10^6/uL (3.50-5.40); RED CELL DISTRIBUTION WIDTH 13.2 % (11.5-14.5); WHITE BLOOD COUNT 10.6 x10^3/uL (4.0-11.0)
[2019-10-28 18:23] LABS: CALCIUM 7.8 mg/dL (8.5-10.1); CREATININE 0.6 mg/dL (0.6-1.0); GFR 148.6; POTASSIUM 3.6 mmol/L (3.5-5.1)
[2019-10-28 18:29] LABS: ALBUMIN 2.3 g/dL (3.4-5.0); ALBUMIN/GLOBULIN RATIO 0.7 (1.0-1.7); TOTAL BILIRUBIN 0.3 mg/dL (0.2-1.0); TOTAL PROTEIN 5.6 g/dL (6.4-8.2)
[2019-10-28] MEDS ORDERED: ACETAMINOPHEN 500 MG TABLET PO ONE (18:45)
== END 2019-10-28 19:15 | disposition home or self-care (01) ==
LOC: 3 SO LND 15:47
PROVIDERS: ADMIT Obstetrics & Gynecology; ATTEND Obstetrics & Gynecology
DX: O26.893 Other specified pregnancy related conditions, third trimester (principal); R51 Headache; Z3A.38 38 weeks gestation of pregnancy
CPT/HCPCS: 36415; 80053; 81001; 82570; 84156; 85025; G0378; G0379

== ENCOUNTER 2019-10-29 09:47 | Inpatient (IN) | payer OTHER ==
[~2019-10-29] VITALS: Ht 152.4 cm; Wt 100.2 kg
[2019-10-29 10:15] VITALS: BP 141/97
[2019-10-29] MEDS ORDERED: IV RINGERS,LACTATED 1000ML 1,000 ML IV SCH ×2 (10:15→13:16)
[2019-10-29 10:42] LABS: BILIRUBIN,URINE NEGATIVE (NEG); CLARITY,URINE CLEAR; COLOR,URINE AMBER; NITRITE,URINE NEGATIVE (NEG); PROTEIN,URINE 30 mg/dL (NEG-TRACE)
[2019-10-29 10:45] LABS: CREATININE,RANDOM URINE 302.2 mg/dL (Not Establ.)
[2019-10-29 10:51] LABS: BASO % 1 % (0-3); EOS # 0.2 x10^3/uL (0.0-0.7); EOS % 2 % (0-3); HEMATOCRIT 30.8 % (36.0-47.0); HEMOGLOBIN 10.6 g/dL (12.0-15.5); LYMPH % 21 % (24-48); MEAN CORPUSCULAR HEMOGLOBIN 30 pg (25-35); MEAN CORPUSCULAR HGB CONC 35 g/dL (31-37); MEAN CORPUSCULAR VOLUME 87 fL (79-100); MONO # 0.7 x10^3/uL (0.0-1.1); MONO % 7 % (0-9); NEUT # 6.8 x10^3/uL (1.8-7.7); NEUT % 70 % (31-73); PLATELET COUNT 185 x10^3/uL (140-400); RED BLOOD COUNT 3.54 x10^6/uL (3.50-5.40); RED CELL DISTRIBUTION WIDTH 13.8 % (11.5-14.5); WHITE BLOOD COUNT 9.8 x10^3/uL (4.0-11.0)
[2019-10-29 10:55] LABS: SQUAMOUS EPITHELIAL CELL,UR MANY /LPF
[2019-10-29 10:56] LABS: BACTERIA,URINE FEW /HPF (0-FEW)
[2019-10-29 11:07] LABS: ALBUMIN 2.5 g/dL (3.4-5.0); ALBUMIN/GLOBULIN RATIO 0.7 (1.0-1.7); CALCIUM 7.7 mg/dL (8.5-10.1); CREATININE 0.6 mg/dL (0.6-1.0); GFR 148.6; POTASSIUM 3.7 mmol/L (3.5-5.1); TOTAL BILIRUBIN 0.3 mg/dL (0.2-1.0); TOTAL PROTEIN 6.1 g/dL (6.4-8.2)
[2019-10-29] MEDS ORDERED: MAGNESIUM SULFATE 4GM 100 ML IV ONE (12:30)
[2019-10-29] MEDS: MAGNESIUM SULFATE 20GM 500 ML IV SCH ×2 (13:24→23:46)
[2019-10-29] MEDS ORDERED: OXYTOCIN 30 UNIT/500 ML PREMIX 500 ML IV PRN ×2 (13:30→16:00)
[2019-10-29] MEDS ORDERED: 0.9 % SODIUM CHLORIDE 10 ML DISP.SYRIN. IV PRN ×2 (13:30→16:00)
[2019-10-29] MEDS ORDERED: LIDOCAINE 1% PF 30 ML VIAL. INJ PRN (13:30)
[2019-10-29] MEDS ORDERED: TERBUTALINE 1 MG/ML VIAL. SQ PRN (13:30)
[2019-10-29] MEDS ORDERED: CITRIC ACID/SODIUM CITRATE 30 ML SOLUTION. ONE (13:44)
--- NOTE | 2019-10-29 13:46 | PDOC1 ---
OB - History Hx of Present Care: Good Care Ultrasounds: Normal mid trimester US Obstetrical Complications: Pre-eclampsia Medical Complications: None Past Family/Social History * Past Medical, Surgical, Family and Obstetric Histories reviewed from chart. Rubella: Immune RPR/VDRL: Negative GBS Status: Negative HBsAG: Negative OB - Chief Complaint & HPI Date of Admission: Date of Admission: Oct 29, 2019 at 09:47 Chief Complaint/History : 4 Para: 3 EGA: 38 Reason for admission: section (preeclampsia) Indication for : desires repeat (preeclampsia) Admission Nurse Assessment Rev: Yes OB - Admission Exam Physical Exam HEENT: Normal Heart: Regular Rate Lungs: Clear Abdomen: Gravid, Non tender, Soft Extremities: Edema Reflexes: Normal Cervical Dilatation: None Effacement: 25% Station: -3 Membranes: Intact Heart Rate: Normal Accelerations: Accelerations Present Decelerations: No decelerations Contractions on Admission: >10 Minutes Apart Intensity: Mild Text A: 38 wks IUP Previous c/s x 3 Preeclampsia P: Admit for repeat c/s. Start Magnesium sulfate. SHERIF ESCALANTE Jr, MD Oct 29, 2019 13:46
[2019-10-29] MEDS ORDERED: ceFAZolin 2GM PREMIX 2 GM/50 ML BAG IV ONE (14:00)
[2019-10-29] MEDS ORDERED: fentaNYL PF VIAL 100 MCG/2 ML VIAL ONE (14:33)
[2019-10-29] MEDS ORDERED: MORPHINE PF 10 MG/10 ML AMPUL. ONE (14:33)
--- NOTE | 2019-10-29 15:46 | PDOC4 ---
OB Operative Note Date: Oct 29, 2019 PRE OP DIAGNOSIS: Previoujs C- section (Preeclampsia) POST OP DIAGNOSIS: Other (Same) OPERATION PERFORMED: R [facility] Surgeon Dr. Navas Anesthesia: Regional (Spinal) Blood Loss 600 ml Specimen placenta and OB Findings: Position (Vertex), Sex (Male), (8/9), Weight (3050 Gram), Nuchal Cord (x1) Complications none Additional Remarks pt. SHERIF Bautista Jr, MD Oct 29, 2019 15:45
[2019-10-29] MEDS ORDERED: diphenhydrAMINE ORAL ELIXIR 12.5 MG/5 ML ML PO PRN (16:00)
[2019-10-29] MEDS ORDERED: MAG HYDROX/ALUMINUM HYD/SIMETH 30 ML ORAL.SUSP PO PRN (16:00)
[2019-10-29] MEDS ORDERED: ONDANSETRON PF 4 MG/2 ML VIAL. IV PRN (16:00)
[2019-10-29] MEDS ORDERED: ZOLPIDEM 5 MG TABLET. PO PRN (16:00)
[2019-10-29] MEDS ORDERED: oxyCODONE/APAP 5/325 1 TAB TABLET PO PRN (16:00)
[2019-10-29] MEDS ORDERED: SIMETHICONE 80 MG TAB.CHEW PO PRN (16:00)
[2019-10-29] MEDS ORDERED: ONDANSETRON PF 4 MG/2 ML VIAL. ONE (16:02)
[2019-10-29] MEDS ORDERED: DEXAMETHASONE SOD PHOS 4 MG/ML VIAL ONE (16:02)
[2019-10-29] MEDS ORDERED: METOCLOPRAMIDE HCL 10 MG/2 ML VIAL. ONE (16:02)
[2019-10-29] MEDS ORDERED: OXYTOCIN 10 UNIT/ML VIAL. ONE (16:02)
[2019-10-29] MEDS ORDERED: PHENYLEPHRINE in 0.9% NACL PF 1 MG/10 ML SYRINGE. IV ONE (16:02)
[2019-10-29] MEDS ORDERED: FAMOTIDINE 20 MG/2 ML VIAL ONE (16:02)
[2019-10-29] MEDS: KETOROLAC 30 MG/ML VIAL. IV PRN (18:00)
--- NOTE | 2019-10-29 21:06 | OP ---
DATE OF SURGERY: PREOPERATIVE DIAGNOSES: 1. A 38 weeks' intrauterine . 2. Preeclampsia. 3. Previous section x 3. POSTOPERATIVE DIAGNOSES: 1. A 38 weeks' intrauterine . 2. Preeclampsia. 3. Previous section x 3. PROCEDURE: Repeat low transverse section. SURGEON: Sherif Navas MD ANESTHESIA: Spinal. ESTIMATED BLOOD LOSS: 600 mL. COMPLICATIONS: None. FINDINGS: Viable male infant, Apgars 8 and 9, nuchal cord x 1, 3-vessel cord placenta delivered manually, intact. SUMMARY: A 24-year-old 4, para 3 at 38 weeks' gestation with elevated blood pressures and was diagnosed with preeclampsia. The patient was counseled on risks, benefits and expectations of repeat section and voiced clear understanding to proceed. DESCRIPTION OF PROCEDURE: The patient was taken to surgery suite and placed in dorsal supine position. She was prepped with ChloraPrep and draped in a sterile way. After adequate anesthesia, Pfannenstiel skin incision was made with scalpel down to and through the fascia. The fascia was extended laterally using curved Walden scissors. The superior edge of the fascia was grasped with 2 Caleb clamps and dissected free of the abdominal rectus muscles using blunt dissection along with Bovie cautery. The same process took place inferiorly. The abdominal rectus muscles were dissected using curved Walden scissors at the midline. The peritoneum was also incised simultaneously. There were a few adhesions that were removed with the aid of Metzenbaum scissors. The Skinny ring retractor was placed. A low transverse hysterotomy incision was made with a scalpel down to the amniotic sac. Hysterotomy incision was extended laterally and superiorly digitally. Amniotomy was performed bluntly. With the aid of fundal pressure, the infant's head was delivered in a smooth atraumatic manner. Nuchal cord x 1 was visualized and reduced. With the additional fundal pressure, the anterior shoulder was delivered followed by posterior shoulder and rest of male infant was delivered. The was suctioned with a bulb syringe orally and nasally, umbilical cord was clamped twice and cut. Viable male infant was handed to waiting nursing staff. Umbilical cord blood was then obtained. Three-vessel cord placenta was delivered manually intact. The uterus was then exteriorized and cleared of clot and debris with a moist lap. Hysterotomy incision was reapproximated using #1 Vicryl suture in running locked fashion. The posterior cul-de-sac was cleared of clot and debris with moist lap. The uterus palpated firm. Fallopian tubes and ovaries appeared normal bilaterally. Uterus was then returned to the abdomen. Pericolic gutters were cleared of clot and debris with a moist lap. Hysterotomy incision was reviewed and was hemostatic. The Skinny ring retractor was removed. The peritoneum was reapproximated using #1 Vicryl suture in running fashion. The fascia was then reapproximated using Stratafix in a running fashion. The skin was reapproximated using 4-0 Vicryl suture in subcuticular manner. Prevena wound VAC was placed. The patient tolerated the procedure well and was taken to the recovery room in stable condition. Sponge and needle count correct x 3. SHERIF NAVAS MD DR: NASIM/víctor JOB#: [id number] / [id number]
[2019-10-30 06:45] LABS: ALBUMIN/GLOBULIN RATIO 0.6 (1.0-1.7); CALCIUM 6.7 mg/dL (8.5-10.1); CREATININE 0.6 mg/dL (0.6-1.0); GFR 148.6; POTASSIUM 3.9 mmol/L (3.5-5.1); TOTAL BILIRUBIN 0.3 mg/dL (0.2-1.0); TOTAL PROTEIN 5.6 g/dL (6.4-8.2)
[2019-10-30 06:53] LABS: BASO % 0 % (0-3); EOS % 0 % (0-3); HEMATOCRIT 26.9 % (36.0-47.0); HEMOGLOBIN 9.1 g/dL (12.0-15.5); LYMPH # 1.5 x10^3/uL (1.0-4.8); LYMPH % 12 % (24-48); MEAN CORPUSCULAR HEMOGLOBIN 30 pg (25-35); MEAN CORPUSCULAR HGB CONC 34 g/dL (31-37); MEAN CORPUSCULAR VOLUME 88 fL (79-100); MONO # 0.9 x10^3/uL (0.0-1.1); MONO % 7 % (0-9); NEUT # 10.1 x10^3/uL (1.8-7.7); NEUT % 81 % (31-73); PLATELET COUNT 193 x10^3/uL (140-400); RED BLOOD COUNT 3.06 x10^6/uL (3.50-5.40); RED CELL DISTRIBUTION WIDTH 13.7 % (11.5-14.5); WHITE BLOOD COUNT 12.5 x10^3/uL (4.0-11.0)
[2019-10-30] MEDS: KETOROLAC 30 MG/ML VIAL. IV PRN ×2 (07:21→14:40)
--- NOTE | 2019-10-30 10:03 | PDOC ---
OB Progress Note Date of Service 10/30/19 Time of Evaluation 1000 Notes Pt. feeling well. Pain controlled. BP in more normal range. No H/A, CP, SOB, epigastric pain for visual changes. Lab Laboratory Tests Test 10/29/19 10:15 10/29/19 10:30 10/30/19 06:10 Urine Collection Type Unknown Urine Color Katalina Urine Clarity Clear Urine pH 6.0 Urine Specific [place] >=1.030 Urine Protein 30 mg/dL (NEG-TRACE) Urine Glucose (UA) Negative mg/dL (NEG) Urine Ketones (Stick) Negative mg/dL (NEG) Urine Blood Negative (NEG) Urine Nitrite Negative (NEG) Urine Bilirubin Negative (NEG) Urine Urobilinogen Dipstick 1.0 mg/dL (0.2 mg/dL) Urine Leukocyte Esterase Negative (NEG) Urine RBC 1-2 /HPF (0-2) Urine WBC 1-4 /HPF (0-4) Urine Squamous Epithelial Cells Many /LPF Urine Bacteria Few /HPF (0-FEW) Urine Mucus Mod /LPF Urine Random Creatinine 302.2 mg/dL (Not Establ.) Urine Random Total Protein 66.8 mg/dL (Not Establ.) Urine Protein/Creatinine Ratio 221 mg/g (0-200) White Blood Count 9.8 x10^3/uL (4.0-11.0) 12.5 x10^3/uL (4.0-11.0) Red Blood Count 3.54 x10^6/uL (3.50-5.40) 3.06 x10^6/uL (3.50-5.40) Hemoglobin 10.6 g/dL (12.0-15.5) 9.1 g/dL (12.0-15.5) Hematocrit 30.8 % (36.0-47.0) 26.9 % (36.0-47.0) Mean Corpuscular Volume 87 fL (79-100) 88 fL (79-100) Mean Corpuscular Hemoglobin 30 pg (25-35) 30 pg (25-35) Mean Corpuscular Hemoglobin Concent 35 g/dL (31-37) 34 g/dL (31-37) Red Cell Distribution Width 13.8 % (11.5-14.5) 13.7 % (11.5-14.5) Platelet Count 185 x10^3/uL (140-400) 193 x10^3/uL (140-400) Neutrophils (%) (Auto) 70 % (31-73) 81 % (31-73) Lymphocytes (%) (Auto) 21 % (24-48) 12 % (24-48) Monocytes (%) (Auto) 7 % (0-9) 7 % (0-9) Eosinophils (%) (Auto) 2 % (0-3) 0 % (0-3) Basophils (%) (Auto) 1 % (0-3) 0 % (0-3) Neutrophils # (Auto) 6.8 x10^3/uL (1.8-7.7) 10.1 x10^3/uL (1.8-7.7) Lymphocytes # (Auto) 2.0 x10^3/uL (1.0-4.8) 1.5 x10^3/uL (1.0-4.8) Monocytes # (Auto) 0.7 x10^3/uL (0.0-1.1) 0.9 x10^3/uL (0.0-1.1) Eosinophils # (Auto) 0.2 x10^3/uL (0.0-0.7) 0.0 x10^3/uL (0.0-0.7) Basophils # (Auto) 0.0 x10^3/uL (0.0-0.2) 0.0 x10^3/uL (0.0-0.2) Sodium Level 142 mmol/L (136-145) 136 mmol/L (136-145) Potassium Level 3.7 mmol/L (3.5-5.1) 3.9 mmol/L (3.5-5.1) Chloride Level 107 mmol/L (98-107) 105 mmol/L (98-107) Carbon Dioxide Level 21 mmol/L (21-32) 20 mmol/L (21-32) Anion Gap 14 (6-14) 11 (6-14) Blood Urea Nitrogen 8 mg/dL (7-20) 7 mg/dL (7-20) Creatinine 0.6 mg/dL (0.6-1.0) 0.6 mg/dL (0.6-1.0) Estimated GFR (Cockcroft-Gault) 148.6 148.6 BUN/Creatinine Ratio 13 (6-20) 12 (6-20) Glucose Level 77 mg/dL (70-99) 94 mg/dL (70-99) Calcium Level 7.7 mg/dL (8.5-10.1) 6.7 mg/dL (8.5-10.1) Total Bilirubin 0.3 mg/dL (0.2-1.0) 0.3 mg/dL (0.2-1.0) Aspartate Amino Transf (AST/SGOT) 14 U/L (15-37) 15 U/L (15-37) Alanine Aminotransferase (ALT/SGPT) 11 U/L (14-59) 11 U/L (14-59) Alkaline Phosphatase 117 U/L (46-116) 95 U/L (46-116) Total Protein 6.1 g/dL (6.4-8.2) 5.6 g/dL (6.4-8.2) Albumin 2.5 g/dL (3.4-5.0) 2.0 g/dL (3.4-5.0) Albumin/Globulin Ratio 0.7 (1.0-1.7) 0.6 (1.0-1.7) Treponema pallidum Antibody Nonreactive (Nonreactive) Laboratory Tests Test 10/29/19 10:15 10/29/19 10:30 10/30/19 06:10 Urine Collection Type Unknown Urine Color Katalina Urine Clarity Clear Urine pH 6.0 Urine Specific [place] >=1.030 Urine Protein 30 mg/dL (NEG-TRACE) Urine Glucose (UA) Negative mg/dL (NEG) Urine Ketones (Stick) Negative mg/dL (NEG) Urine Blood Negative (NEG) Urine Nitrite Negative (NEG) Urine Bilirubin Negative (NEG) Urine Urobilinogen Dipstick 1.0 mg/dL (0.2 mg/dL) Urine Leukocyte Esterase Negative (NEG) Urine RBC 1-2 /HPF (0-2) Urine WBC 1-4 /HPF (0-4) Urine Squamous Epithelial Cells Many /LPF Urine Bacteria Few /HPF (0-FEW) Urine Mucus Mod /LPF Urine Random Creatinine 302.2 mg/dL (Not Establ.) Urine Random Total Protein 66.8 mg/dL (Not Establ.) Urine Protein/Creatinine Ratio 221 mg/g (0-200) White Blood Count 9.8 x10^3/uL (4.0-11.0) 12.5 x10^3/uL (4.0-11.0) Red Blood Count 3.54 x10^6/uL (3.50-5.40) 3.06 x10^6/uL (3.50-5.40) Hemoglobin 10.6 g/dL (12.0-15.5) 9.1 g/dL (12.0-15.5) Hematocrit 30.8 % (36.0-47.0) 26.9 % (36.0-47.0) Mean Corpuscular Volume 87 fL (79-100) 88 fL (79-100) Mean Corpuscular Hemoglobin 30 pg (25-35) 30 pg (25-35) Mean Corpuscular Hemoglobin Concent 35 g/dL (31-37) 34 g/dL (31-37) Red Cell Distribution Width 13.8 % (11.5-14.5) 13.7 % (11.5-14.5) Platelet Count 185 x10^3/uL (140-400) 193 x10^3/uL (140-400) Neutrophils (%) (Auto) 70 % (31-73) 81 % (31-73) Lymphocytes (%) (Auto) 21 % (24-48) 12 % (24-48) Monocytes (%) (Auto) 7 % (0-9) 7 % (0-9) Eosinophils (%) (Auto) 2 % (0-3) 0 % (0-3) Basophils (%) (Auto) 1 % (0-3) 0 % (0-3) Neutrophils # (Auto) 6.8 x10^3/uL (1.8-7.7) 10.1 x10^3/uL (1.8-7.7) Lymphocytes # (Auto) 2.0 x10^3/uL (1.0-4.8) 1.5 x10^3/uL (1.0-4.8) Monocytes # (Auto) 0.7 x10^3/uL (0.0-1.1) 0.9 x10^3/uL (0.0-1.1) Eosinophils # (Auto) 0.2 x10^3/uL (0.0-0.7) 0.0 x10^3/uL (0.0-0.7) Basophils # (Auto) 0.0 x10^3/uL (0.0-0.2) 0.0 x10^3/uL (0.0-0.2) Sodium Level 142 mmol/L (136-145) 136 mmol/L (136-145) Potassium Level 3.7 mmol/L (3.5-5.1) 3.9 mmol/L (3.5-5.1) Chloride Level 107 mmol/L (98-107) 105 mmol/L (98-107) Carbon Dioxide Level 21 mmol/L (21-32) 20 mmol/L (21-32) Anion Gap 14 (6-14) 11 (6-14) Blood Urea Nitrogen 8 mg/dL (7-20) 7 mg/dL (7-20) Creatinine 0.6 mg/dL (0.6-1.0) 0.6 mg/dL (0.6-1.0) Estimated GFR (Cockcroft-Gault) 148.6 148.6 BUN/Creatinine Ratio 13 (6-20) 12 (6-20) Glucose Level 77 mg/dL (70-99) 94 mg/dL (70-99) Calcium Level 7.7 mg/dL (8.5-10.1) 6.7 mg/dL (8.5-10.1) Total Bilirubin 0.3 mg/dL (0.2-1.0) 0.3 mg/dL (0.2-1.0) Aspartate Amino Transf (AST/SGOT) 14 U/L (15-37) 15 U/L (15-37) Alanine Aminotransferase (ALT/SGPT) 11 U/L (14-59) 11 U/L (14-59) Alkaline Phosphatase 117 U/L (46-116) 95 U/L (46-116) Total Protein 6.1 g/dL (6.4-8.2) 5.6 g/dL (6.4-8.2) Albumin 2.5 g/dL (3.4-5.0) 2.0 g/dL (3.4-5.0) Albumin/Globulin Ratio 0.7 (1.0-1.7) 0.6 (1.0-1.7) Treponema pallidum Antibody Nonreactive (Nonreactive) Medications Current Medications Ringer's Solution 1,000 ml @ 125 mls/hr Q8H IV Last administered on 10/29/19at 13:01; Start 10/29/19 at 10:15 Magnesium Sulfate 100 ml @ 25 mls/hr 1X ONCE IV Last administered on at 13:03; Start 10/29/19 at 12:30; Stop 10/29/19 at 16:29; Status DC Magnesium Sulfate 500 ml @ 50 mls/hr Q10H IV Last administered on 10/29/19at 23:46; Start 10/29/19 at 12:30 Sodium Chloride (Normal Saline Flush) 3 ml QSHIFT PRN IV AFTER MEDS AND BLOOD DRAWS; Start 10/29/19 at 13:30 Ringer's Solution 1,000 ml @ 125 mls/hr Q8H IV Last administered on 10/29/19at 23:46; Start 10/29/19 at 13:16 Terbutaline Sulfate (Brethine) 0.25 mg 1X PRN PRN SQ SEE COMMENTS; Start 10/29/19 at 13:30; Stop 10/30/19 at 13:29 Lidocaine HCl (Xylocaine 1% Pf 30ml Vial) 30 ml 1X PRN PRN INJ SEE COMMENTS; Start 10/29/19 at 13:30; Stop 10/31/19 at 13:29 Oxytocin/Sodium Chloride 500 ml @ 0 mls/hr CONT PRN PRN IV Post delivery bleeding; Start 10/29/19 at 13:30 Cefazolin Sodium/ Dextrose 50 ml @ 100 mls/hr 1X ONCE IV ; Start 10/29/19 at 13:30; Stop 10/29/19 at 13:59; Status DC Citric Acid/ Sodium Citrate (Bicitra) 30 ml STK-MED ONCE .ROUTE ; Start 10/29/19 at 13:44; Stop 10/29/19 at 13:44; Status DC Morphine Sulfate (Morphine Preservative Free) 10 mg STK-MED ONCE .ROUTE ; Start 10/29/19 at 14:33; Stop 10/29/19 at 14:33; Status DC Fentanyl Citrate (Fentanyl 2ml Vial) 100 mcg STK-MED ONCE .ROUTE ; Start 10/29/19 at 14:33; Stop 10/29/19 at 14:33; Status DC Sodium Chloride (Normal Saline Flush) 3 ml QSHIFT PRN IV AFTER MEDS AND BLOOD DRAWS; Start 10/29/19 at 16:00 Oxytocin/Sodium Chloride 500 ml @ 125 mls/hr CONT PRN IV EXCESSIVE POST- BLEEDING; Start 10/29/19 at 16:00; Stop 10/29/19 at 23:59; Status DC Ibuprofen (Motrin) 800 mg PRN Q4HRS PRN PO INFLAMMATION; Start 10/29/19 at 16:00 Ondansetron HCl (Zofran) 4 mg PRN Q6HRS PRN IV NAUSEA/VOMITING; Start 10/29/19 at 16:00 Docusate Sodium (Colace) 100 mg PRN BID PRN PO CONSTIPATION; Start 10/29/19 at 16:00 Al Hydroxide/Mg Hydroxide (Mylanta Plus Xs) 30 ml PRN Q4HRS PRN PO HEARTBURN / GAS; Start 10/29/19 at 16:00 Simethicone (Gas-X) 80 mg PRN AFTMEALHC PRN PO GAS / BLOATING; Start 10/29/19 at 16:00 Diphenhydramine HCl (Benadryl Oral Elixir) 12.5 mg PRN Q6HRS PRN PO ITCHING; Start 10/29/19 at 16:00 Ferrous Sulfate (Feosol) 325 mg BIDWMEALS PO ; Start 10/29/19 at 17:00 Zolpidem Tartrate (Ambien) 5 mg PRN QHS PRN PO INSOMNIA, MAY REPEAT X1; Start 10/29/19 at 16:00 Oxycodone/ Acetaminophen (Percocet 5/325) 2 tab PRN Q4HRS PRN PO MODERATE PAIN, SEVERE PAIN; Start 10/29/19 at 16:00 Ketorolac Tromethamine (Toradol 30mg Vial) 30 mg PRN Q6HRS PRN IV PAIN Last administered on 10/30/19at 07:21; Start 10/29/19 at 16:00; Stop 11/03/19 at 15:59 Dexamethasone Sodium Phosphate (Decadron) 4 mg STK-MED ONCE .ROUTE ; Start 10/29/19 at 16:02; Stop 10/29/19 at 16:02; Status DC Famotidine (Pepcid Vial) 20 mg STK-MED ONCE .ROUTE ; Start 10/29/19 at 16:02; Stop 10/29/19 at 16:02; Status DC Metoclopramide HCl (Reglan Vial) 10 mg STK-MED ONCE .ROUTE ; Start 10/29/19 at 16:02; Stop 10/29/19 at 16:02; Status DC Ondansetron HCl (Zofran) 4 mg STK-MED ONCE .ROUTE ; Start 10/29/19 at 16:02; Stop 10/29/19 at 16:02; Status DC Phenylephrine HCl (PHENYLEPHRINE in 0.9% NACL PF) 1 mg STK-MED ONCE IV ; Start 10/29/19 at 16:02; Stop 10/29/19 at 16:02; Status DC Oxytocin (Pitocin) 10 unit STK-MED ONCE .ROUTE ; Start 10/29/19 at 16:02; Stop 10/29/19 at 16:02; Status DC Active Scripts Active Colace (Docusate Sodium) 100 Mg Capsule 100 Mg PO BID [place] 5-325 Tablet (Acetaminophen/Hydrocodone Bitart) 1 Each Tablet 1-2 Tab PO Q4-6HRS Ibuprofen 800 Mg Tablet 800 Mg PO PRN Q8HRS PRN Exam Abd: soft, mild tenderness, fundus firm Prevena in place. Assessment POD#1 s/p repeat c/s and preeclampsia. Plan of Care: Continue current Tx, Mgmt (D/c magnesium sulfate 1500. ) SHERIF ESCALANTE Jr, MD Oct 30, 2019 10:03
[2019-10-30 16:00] VITALS: BP 141/91
[2019-10-30] MEDS: FERROUS SULFATE 325 MG TABLET. PO SCH (20:58)
[2019-10-30] MEDS: DOCUSATE SODIUM 100 MG CAPSULE. PO PRN (20:58)
[2019-10-30] MEDS: IBUPROFEN 400 MG TABLET. PO PRN (20:59)
[2019-10-30] MEDS ORDERED: oxyCODONE/APAP 5/325 1 TAB TABLET PO PRN (21:00)
[2019-10-30 21:50] VITALS: BP 126/81
[2019-10-30] MEDS: HYDROcodone/APAP 5/325MG 1 TAB TABLET PO PRN (23:09)
[2019-10-31] VITALS (8 sets, daily range): BP systolic 120–175; BP diastolic 54–108
[2019-10-31] MEDS: HYDROcodone/APAP 5/325MG 1 TAB TABLET PO PRN ×4 (03:22→19:25)
--- NOTE | 2019-10-31 07:52 | PDOC ---
OB Progress Note Date of Service 10/31/19 Time of Evaluation 0750 Notes Pt. feeling well. Pain controlled. BP improved. Lab Laboratory Tests Test 10/29/19 10:15 10/29/19 10:30 10/30/19 06:10 Urine Collection Type Unknown Urine Color Katalina Urine Clarity Clear Urine pH 6.0 Urine Specific [place] >=1.030 Urine Protein 30 mg/dL (NEG-TRACE) Urine Glucose (UA) Negative mg/dL (NEG) Urine Ketones (Stick) Negative mg/dL (NEG) Urine Blood Negative (NEG) Urine Nitrite Negative (NEG) Urine Bilirubin Negative (NEG) Urine Urobilinogen Dipstick 1.0 mg/dL (0.2 mg/dL) Urine Leukocyte Esterase Negative (NEG) Urine RBC 1-2 /HPF (0-2) Urine WBC 1-4 /HPF (0-4) Urine Squamous Epithelial Cells Many /LPF Urine Bacteria Few /HPF (0-FEW) Urine Mucus Mod /LPF Urine Random Creatinine 302.2 mg/dL (Not Establ.) Urine Random Total Protein 66.8 mg/dL (Not Establ.) Urine Protein/Creatinine Ratio 221 mg/g (0-200) White Blood Count 9.8 x10^3/uL (4.0-11.0) 12.5 x10^3/uL (4.0-11.0) Red Blood Count 3.54 x10^6/uL (3.50-5.40) 3.06 x10^6/uL (3.50-5.40) Hemoglobin 10.6 g/dL (12.0-15.5) 9.1 g/dL (12.0-15.5) Hematocrit 30.8 % (36.0-47.0) 26.9 % (36.0-47.0) Mean Corpuscular Volume 87 fL (79-100) 88 fL (79-100) Mean Corpuscular Hemoglobin 30 pg (25-35) 30 pg (25-35) Mean Corpuscular Hemoglobin Concent 35 g/dL (31-37) 34 g/dL (31-37) Red Cell Distribution Width 13.8 % (11.5-14.5) 13.7 % (11.5-14.5) Platelet Count 185 x10^3/uL (140-400) 193 x10^3/uL (140-400) Neutrophils (%) (Auto) 70 % (31-73) 81 % (31-73) Lymphocytes (%) (Auto) 21 % (24-48) 12 % (24-48) Monocytes (%) (Auto) 7 % (0-9) 7 % (0-9) Eosinophils (%) (Auto) 2 % (0-3) 0 % (0-3) Basophils (%) (Auto) 1 % (0-3) 0 % (0-3) Neutrophils # (Auto) 6.8 x10^3/uL (1.8-7.7) 10.1 x10^3/uL (1.8-7.7) Lymphocytes # (Auto) 2.0 x10^3/uL (1.0-4.8) 1.5 x10^3/uL (1.0-4.8) Monocytes # (Auto) 0.7 x10^3/uL (0.0-1.1) 0.9 x10^3/uL (0.0-1.1) Eosinophils # (Auto) 0.2 x10^3/uL (0.0-0.7) 0.0 x10^3/uL (0.0-0.7) Basophils # (Auto) 0.0 x10^3/uL (0.0-0.2) 0.0 x10^3/uL (0.0-0.2) Sodium Level 142 mmol/L (136-145) 136 mmol/L (136-145) Potassium Level 3.7 mmol/L (3.5-5.1) 3.9 mmol/L (3.5-5.1) Chloride Level 107 mmol/L (98-107) 105 mmol/L (98-107) Carbon Dioxide Level 21 mmol/L (21-32) 20 mmol/L (21-32) Anion Gap 14 (6-14) 11 (6-14) Blood Urea Nitrogen 8 mg/dL (7-20) 7 mg/dL (7-20) Creatinine 0.6 mg/dL (0.6-1.0) 0.6 mg/dL (0.6-1.0) Estimated GFR (Cockcroft-Gault) 148.6 148.6 BUN/Creatinine Ratio 13 (6-20) 12 (6-20) Glucose Level 77 mg/dL (70-99) 94 mg/dL (70-99) Calcium Level 7.7 mg/dL (8.5-10.1) 6.7 mg/dL (8.5-10.1) Total Bilirubin 0.3 mg/dL (0.2-1.0) 0.3 mg/dL (0.2-1.0) Aspartate Amino Transf (AST/SGOT) 14 U/L (15-37) 15 U/L (15-37) Alanine Aminotransferase (ALT/SGPT) 11 U/L (14-59) 11 U/L (14-59) Alkaline Phosphatase 117 U/L (46-116) 95 U/L (46-116) Total Protein 6.1 g/dL (6.4-8.2) 5.6 g/dL (6.4-8.2) Albumin 2.5 g/dL (3.4-5.0) 2.0 g/dL (3.4-5.0) Albumin/Globulin Ratio 0.7 (1.0-1.7) 0.6 (1.0-1.7) Treponema pallidum Antibody Nonreactive (Nonreactive) Medications Current Medications Ringer's Solution 1,000 ml @ 125 mls/hr Q8H IV Last administered on 10/29/19at 13:01; Start 10/29/19 at 10:15 Magnesium Sulfate 100 ml @ 25 mls/hr 1X ONCE IV Last administered on 10/29/19at 13:03; Start 10/29/19 at 12:30; Stop 10/29/19 at 16:29; Status DC Magnesium Sulfate 500 ml @ 50 mls/hr Q10H IV Last administered on 10/29/19at 23:46; Start 10/29/19 at 12:30 Sodium Chloride (Normal Saline Flush) 3 ml QSHIFT PRN IV AFTER MEDS AND BLOOD DRAWS; Start 10/29/19 at 13:30 Ringer's Solution 1,000 ml @ 125 mls/hr Q8H IV Last administered on 10/29/19at 23:46; Start 10/29/19 at 13:16 Terbutaline Sulfate (Brethine) 0.25 mg 1X PRN PRN SQ SEE COMMENTS; Start 10/29/19 at 13:30; Stop 10/30/19 at 13:29; Status DC Lidocaine HCl (Xylocaine 1% Pf 30ml Vial) 30 ml 1X PRN PRN INJ SEE COMMENTS; Start 10/29/19 at 13:30; Stop 10/31/19 at 13:29 Oxytocin/Sodium Chloride 500 ml @ 0 mls/hr CONT PRN PRN IV Post delivery bleeding; Start 10/29/19 at 13:30 Cefazolin Sodium/ Dextrose 50 ml @ 100 mls/hr 1X ONCE IV ; Start 10/29/19 at 13:30; Stop 10/29/19 at 13:59; Status DC Citric Acid/ Sodium Citrate (Bicitra) 30 ml STK-MED ONCE .ROUTE ; Start 10/29/19 at 13:44; Stop 10/29/19 at 13:44; Status DC Morphine Sulfate (Morphine Preservative Free) 10 mg STK-MED ONCE .ROUTE ; Start 10/29/19 at 14:33; Stop 10/29/19 at 14:33; Status DC Fentanyl Citrate (Fentanyl 2ml Vial) 100 mcg STK-MED ONCE .ROUTE ; Start 10/29/19 at 14:33; Stop 10/29/19 at 14:33; Status DC Sodium Chloride (Normal Saline Flush) 3 ml QSHIFT PRN IV AFTER MEDS AND BLOOD DRAWS; Start 10/29/19 at 16:00 Oxytocin/Sodium Chloride 500 ml @ 125 mls/hr CONT PRN IV EXCESSIVE POST- BLEEDING; Start 10/29/19 at 16:00; Stop 10/29/19 at 23:59; Status DC Ibuprofen (Motrin) 800 mg PRN Q4HRS PRN PO INFLAMMATION Last administered on 10/30/19at 20:59; Start 10/29/19 at 16:00 Ondansetron HCl (Zofran) 4 mg PRN Q6HRS PRN IV NAUSEA/VOMITING; Start 10/29/19 at 16:00 Docusate Sodium (Colace) 100 mg PRN BID PRN PO CONSTIPATION Last administered on 10/30/19at 20:58; Start 10/29/19 at 16:00 Al Hydroxide/Mg Hydroxide (Mylanta Plus Xs) 30 ml PRN Q4HRS PRN PO HEARTBURN / GAS; Start 10/29/19 at 16:00 Simethicone (Gas-X) 80 mg PRN AFTMEALHC PRN PO GAS / BLOATING Last administered on 10/30/19at 20:58; Start 10/29/19 at 16:00 Diphenhydramine HCl (Benadryl Oral Elixir) 12.5 mg PRN Q6HRS PRN PO ITCHING; Start 10/29/19 at 16:00 Ferrous Sulfate (Feosol) 325 mg BIDWMEALS PO Last administered on 10/30/19at 20:58; Start 10/29/19 at 17:00 Zolpidem Tartrate (Ambien) 5 mg PRN QHS PRN PO INSOMNIA, MAY REPEAT X1; Start 10/29/19 at 16:00 Oxycodone/ Acetaminophen (Percocet 5/325) 2 tab PRN Q4HRS PRN PO MODERATE PAIN, SEVERE PAIN Last administered on 10/30/19at 14:43; Start 10/29/19 at 16:00; Stop 10/30/19 at 21:31; Status DC Ketorolac Tromethamine (Toradol 30mg Vial) 30 mg PRN Q6HRS PRN IV PAIN Last administered on 10/30/19at 14:40; Start 10/29/19 at 16:00; Stop 11/03/19 at 15:59 Dexamethasone Sodium Phosphate (Decadron) 4 mg STK-MED ONCE .ROUTE ; Start 10/29/19 at 16:02; Stop 10/29/19 at 16:02; Status DC Famotidine (Pepcid Vial) 20 mg STK-MED ONCE .ROUTE ; Start 10/29/19 at 16:02; Stop 10/29/19 at 16:02; Status DC Metoclopramide HCl (Reglan Vial) 10 mg STK-MED ONCE .ROUTE ; Start 10/29/19 at 16:02; Stop 10/29/19 at 16:02; Status DC Ondansetron HCl (Zofran) 4 mg STK-MED ONCE .ROUTE ; Start 10/29/19 at 16:02; Stop 10/29/19 at 16:02; Status DC Phenylephrine HCl (PHENYLEPHRINE in 0.9% NACL PF) 1 mg STK-MED ONCE IV ; Start 10/29/19 at 16:02; Stop 10/29/19 at 16:02; Status DC Oxytocin (Pitocin) 10 unit STK-MED ONCE .ROUTE ; Start 10/29/19 at 16:02; Stop 10/29/19 at 16:02; Status DC Cefazolin Sodium/ Dextrose (Ancef 2gm Premix) 2 gm STK-MED ONCE IV ; Start 10/29/19 at 14:00; Stop 10/30/19 at 13:36; Status DC Oxycodone/ Acetaminophen (Percocet 5/325) 1 tab PRN Q4HRS PRN PO MODERATE PAIN 4-6; Start 10/30/19 at 21:00; Stop 10/30/19 at 21:31; Status DC Acetaminophen/ Hydrocodone Bitart (Lortab 5/325) 2 tab PRN Q4HRS PRN PO MODERATE PAIN 4-6 Last administered on 10/31/19at 03:22; Start 10/30/19 at 21:00 Active Scripts Active Colace (Docusate Sodium) 100 Mg Capsule 100 Mg PO BID [place] 5-325 Tablet (Acetaminophen/Hydrocodone Bitart) 1 Each Tablet 1-2 Tab PO Q4-6HRS Ibuprofen 800 Mg Tablet 800 Mg PO PRN Q8HRS PRN Exam Abd: soft, mild tenderness, fundus firm Prevena in place Assessment POD#2 s/p repeat c/s. Plan of Care: Continue current Tx, Mgmt SHERIF ESCALANTE Jr, MD Oct 31, 2019 07:52
[2019-10-31] MEDS: FERROUS SULFATE 325 MG TABLET. PO SCH ×4 (08:00→17:58)
[2019-10-31] MEDS: DOCUSATE SODIUM 100 MG CAPSULE. PO PRN (09:28)
[2019-10-31] MEDS: IBUPROFEN 400 MG TABLET. PO PRN ×3 (09:29→22:40)
--- NOTE | 2019-10-31 12:27 | NUR ---
Pt. BP elevated. notified. Orders received. Will continue to monitor.
[2019-10-31] MEDS ORDERED: hydrALAZINE 20 MG/ML VIAL. IM ONE ×2 (19:15→23:00)
--- NOTE | 2019-10-31 21:30 | NUR ---
disregard 2112 vitals incorrect chart
[2019-11-01 00:09] VITALS: BP 123/62
[2019-11-01] MEDS: IBUPROFEN 400 MG TABLET. PO PRN (03:28)
[2019-11-01] MEDS: HYDROcodone/APAP 5/325MG 1 TAB TABLET PO PRN ×3 (05:30→13:00)
[2019-11-01 05:41] VITALS: BP 145/98
[2019-11-01 08:00] VITALS: BP 141/91
--- NOTE | 2019-11-01 08:14 | PDOC3 ---
OB DISCHARGE SUMMARY DATE OF ADMISSION: 10/29/19 DATE OF DISCHARGE: 11/01/19 REASON FOR ADMISSION: section (preeclampsia) INTRAPARTUM PROCEDURES: : Low Cerv Trans DISCHARGE DIAGNOSIS: Preclampsia, Term Delivered DISCHARGE INFORMATION: Activity (ad dimas), Diet (regular), Instructions (pelvic rest x 6 wks, no driving x 2 wks, no lifting > 20lbs. x 6 wks) HOSPITAL COURSE Term gestation with preeclampsia delivered via repeat section. SHERIF ESCALANTE Jr, MD Nov 01, 2019 08:14
[2019-11-01] MEDS ORDERED: IBUP800T19 PO (08:17)
[2019-11-01] MEDS ORDERED: NIFE30TA95 PO (08:17)
[2019-11-01] MEDS ORDERED: DOCU-109 PO (08:17)
[2019-11-01] MEDS ORDERED: HYDR-3164 PO (08:17)
--- NOTE | 2019-11-01 08:18 | DISCH ---
DISCHARGE INSTRUCTIONS Condition on Discharge Condition on Discharge: Stable Activity After Discharge Activity Instructions for Disc: Activity as tolerated, Avoid exertion Bathing Instructions: No Tub Bath until see Lifting Instructions after Dis: No heavy lifting, No pulling or pushing, Do not lift >10 pounds Driving Instructions after Dis: No driving for 2 weeks Diet after Discharge Diet after Discharge: Regular Diet Texture: Regular Wound Incision Care Wound/Incision Care: Ice to area for comfort Contacting the [facility]in after DC Call your doctor for: Concerns you may have Follow-Up Follow up with: Dr. Navas in 2 wks Treatment/Equipment after DC Adaptive Equipment Issued: None SHERIF NAVAS Jr, MD Nov 01, 2019 08:18
[2019-11-01] MEDS: DOCUSATE SODIUM 100 MG CAPSULE. PO PRN (09:17)
[2019-11-01] MEDS: FERROUS SULFATE 325 MG TABLET. PO SCH (09:17)
[2019-11-01 12:12] VITALS: BP 140/72
--- NOTE | 2019-11-02 10:07 | PATHOLOGY ---
[facility] Accession Number: [id number] . 01 Material submitted: . placenta - PLACENTA AND CORD . 01 Clinical history: . Repeat . Please see delivery summary. . 02 Diagnosis: 537 gram early term placenta of an estimated 37 weeks gestation with attached membranes and umbilical cord: - Placental infarct, small. - Velamentous insertion of umbilical cord. - Septal cyst. - Villitis of unknown etiology, focal, mild. (RAÚL:bernard; 11/01/2019) [facility] 11/01/2019 1629 Local . 02 Comment: There is no evidence of an acute chorioamnionitis. (RAÚL:bernard; 11/01/2019) . 02 Electronically signed: . Estuardo Tafoya MD, Pathologist NPI- [id number] . 01 Gross description: . Received in formalin labeled "Dee Wilson, placenta" is a james placenta with attached membranes and umbilical cord. The placental disc measures 16.5 x 16.3 x 4.8 cm. The membranes are transparent and thin with the site of membrane rupture 3.5 cm from the placental disc. The membranes have marginal insertion. The umbilical cord measures 47.8 cm in length, 1.7 cm in diameter and contains three vessels. The umbilical cord has velamentous insertion, with the vessels extending 3.5 cm off the margin of the disc before converging into the umbilical cord. There are no true knots in the umbilical cord. The trimmed placental weight is 537 grams. The surface is blue-goldstein with minimal subchorionic fibrin. Amnion nodosum is not present. Cysts are not present. The maternal surface has intact cotyledons and no basal hemorrhage. Sectioning through the placental disc reveals patchy focal areas of calcification and a cyst in the central placenta measuring 1.7 cm in greatest dimension. The cyst contains carrington-goldstein mucinous material. A 0.8 cm possible chronic infarct is also present within the central placenta, comprising less than 1% of the cut surfaces. Sections are submitted as follows: . A1 proximal and distal umbilical cord A2 membranes, rolled A3 education courses sales representative peripheral placenta A4 education courses sales representative section of cyst A5 education courses sales representative section of infarct A6 surface adjacent to large vessels A7 additional maternal surface ([facility]; 10/31/2019) [facility] 11/01/2019 1627 Local . 02 Pathologist provided ICD-10: O43.813, O43.893, Z37.0, Z3A.37 . 02 CPT . 237181 Specimen Comment: A courtesy copy of this report has been sent to [phone] Specimen Comment: Report sent to Performed at: 01 [facility] [address] [facility] [address], [place] [id number] MD Jesús Frances MD Phone: [phone] Performed at: 02 [facility] [address], [place] [id number] MD Estuardo Tafoya MD Phone: [phone]
== END 2019-11-01 13:15 | disposition home or self-care (01) | DRG 788 ==
LOC: 3 SO LND 09:47 → OBSVTOIN 09:47 → 3 NORTH 10-30 15:53
PROVIDERS: ADMIT Obstetrics & Gynecology; ATTEND Obstetrics & Gynecology
PROC: 10D00Z1 Extraction of Products of Conception, Low, Open Approach (ICD-10-PCS; principal; 2019-10-29)
DX: O34.211 Maternal care for low transverse scar from previous cesarean delivery (principal); O14.94 Unspecified pre-eclampsia, complicating childbirth; O69.81X0 Labor and delivery complicated by cord around neck, without compression, not applicable or unspecified; Z37.0 Single live birth; Z3A.38 38 weeks gestation of pregnancy
CPT/HCPCS: 36415; 80053; 81001; 82570; 84156; 85025; 86592; 86850; 86900; 86901; J0360; J0696; J1100; J1885; J2274; J2370; J2405; J2590; J2765; J3010; J3475; J3490; J7120; G0378

== ENCOUNTER 2019-12-12 07:40 | Day surgery (SDC) | payer OTHER ==
[2019-12-12] MEDS: IV RINGERS,LACTATED 1000ML 1,000 ML IV SCH (07:00)
[~2019-12-12 07:40] MED LIST changes: +NIFE30TA95 PO; +NIFE60TA90 PO; +PNV1TABL34 PO; +PROCHLORPERAZINE 10 MG/2 ML VIAL. IV PRN; +fentaNYL PF VIAL 100 MCG/2 ML VIAL IV PRN
[2019-12-12] MEDS ORDERED: DEXAMETHASONE SOD PHOS 4 MG/ML VIAL ONE (09:07)
[2019-12-12] MEDS ORDERED: PROPOFOL 20 ML IV ONE (09:07)
[2019-12-12] MEDS ORDERED: LIDOCAINE 2% PF 5 ML VIAL. ONE (09:07)
[2019-12-12] MEDS ORDERED: ONDANSETRON PF 4 MG/2 ML VIAL. ONE (09:07)
[2019-12-12] MEDS ORDERED: ROCURONIUM 50 MG/5 ML VIAL. ONE (09:09)
[2019-12-12] MEDS ORDERED: fentaNYL PF VIAL 100 MCG/2 ML VIAL ONE ×2 (09:10→10:24)
[2019-12-12] MEDS ORDERED: MIDAZOLAM HCL/PF 2 MG/2 ML VIAL. ONE (09:10)
[2019-12-12] MEDS ORDERED: GLYCOPYRROLATE 1 MG/5 ML VIAL. ONE (09:12)
[2019-12-12] MEDS ORDERED: NEOSTIGMINE METHYLSULFATE 5 MG/5 ML SYRINGE. ONE (09:12)
[2019-12-12] MEDS ORDERED: KETOROLAC 30 MG/ML VIAL. ONE (10:10)
[2019-12-12] MEDS: BUPIVACAINE-EPI 0.25%-1:200000 MPF 30 ML VIAL. ONE (10:39)
--- NOTE | 2019-12-12 10:56 | PDOC ---
BRIEF OPERATIVE NOTE Date: Dec 12, 2019 Pre-Op Diagnosis Sterilization Post-Op Diagnosis SAme Procedure Performed [facility]C BTL with distal salpingectomy Surgeon Dr. Navas Anesthesia Type: General Blood Loss 5 ml Specimens Obtained geovanna. fallopian tubes Findings nml size uterus, nml ovaries and fallopian tubes geovanna.; adhesion of uterus to abd wall and abd wall adhesions Complications none Operative Note see dictation SHERIF NAVAS Jr, MD Dec 12, 2019 10:55
--- NOTE | 2019-12-12 10:58 | DISCH ---
DISCHARGE INSTRUCTIONS Condition on Discharge Condition on Discharge: Stable Activity After Discharge Activity Instructions for Disc: Activity as tolerated Bathing Instructions: Shower-keep dressing dry, No Tub Bath until see Lifting Instructions after Dis: No heavy lifting, No pulling or pushing, Do not lift >10 pounds Driving Instructions after Dis: Do not drive today Diet after Discharge Diet after Discharge: Regular Diet Texture: Regular Liquid Texture: Thin Liquid Swallowing Supervision: None needed Wound Incision Care Wound/Incision Care: May get incision wet Contacting the DRDustin after DC Call your doctor for: Concerns you may have Follow-Up Follow up with: Dr. Navas in 1 week Treatment/Equipment after DC Adaptive Equipment Issued: None SHERIF NAVAS Jr, MD Dec 12, 2019 10:58
[2019-12-12] MEDS ORDERED: SEVOFLURANE 61 TO 120 MINUTES. IH ONE (11:00)
[2019-12-12] MEDS ORDERED: HYDR-2761 PO (11:03)
[2019-12-12] MEDS ORDERED: HYDROcodone/APAP 5/325MG 1 TAB TABLET PO ONE (11:15)
--- NOTE | 2019-12-12 11:23 | OP ---
DATE OF SURGERY: PREOPERATIVE DIAGNOSIS: Sterilization. POSTOPERATIVE DIAGNOSIS: Sterilization. PROCEDURE: Laparoscopic bilateral tubal ligation with distal salpingectomy. SURGEON: Tristan Navas MD ANESTHESIA: GETA. ESTIMATED BLOOD LOSS: 5 mL. COMPLICATIONS: None. FINDINGS: Normal size uterus, normal fallopian tubes and ovaries bilaterally. Adhesions of the uterus, abdominal wall and abdominal wall adhesions. SUMMARY: A 24-year-old female, desires permanent sterilization was counseled on the risks, benefits and expectations as well as failure rate and desired to proceed. DESCRIPTION OF PROCEDURE: The patient was taken to surgery suite and placed in dorsal lithotomy position. She was prepped with Betadine solution for vaginal prep and ChloraPrep for abdominal prep. After adequate anesthesia, bivalve speculum was placed vaginally. Anterior lip of the cervix grasped with single tooth tenaculum. Uterine acorn manipulator was then placed. The bivalve speculum was then removed and attention was now placed on abdomen. Small transverse skin incision was made just below the umbilicus with a scalpel. The Veress needle was then placed through the infraumbilical incision site. The abdomen was allowed to insufflate up to 1-1/2 liters CO2 gas. The Veress needle was then removed, 5 mm trocar was placed. Scope was positioned. There were abdominal wall adhesions. The uterus was adhered to abdominal wall. The fallopian tubes and ovaries appeared normal bilaterally. Two additional incisions sites were made in the left lower quadrant with a scalpel in which a 5 mm and 8 mm trocar was placed. With aid of graspers and EnSeal device, the left fallopian tube was isolated, coagulated and dissected away from the adnexa. Same process took place with the right adnexa. The areas were hemostatic. The trocars were then removed under direct visualization. The abdomen was allowed to deflate as much as possible along with mechanical manipulation. The three skin incisions were reapproximated using 4-0 Vicryl suture in subcuticular manner. A 0.25% Marcaine with epinephrine was injected at each incision site. Uterine acorn manipulator and single tooth tenaculum were then removed. The patient tolerated the procedure well and was taken to recovery room in stable condition. Sponge and needle count correct x3. TRISTAN NAVAS MD DR: NASIM/víctor JOB#: [id number] / [id number]
[2019-12-12] MEDS: ONDANSETRON PF 4 MG/2 ML VIAL. IV PRN (12:28)
[2019-12-12] MEDS: HYDROcodone/APAP 5/325MG 1 TAB TABLET PO ONE (13:21)
[2019-12-12 13:26] VITALS: BP 125/75
--- NOTE | 2019-12-13 15:07 | PATHOLOGY ---
[facility] Accession Number: [id number] . 01 Material submitted: . PART A: fallopian tube - LEFT FALLOPIAN TUBE. Modifiers: left PART B: fallopian tube - RIGHT FALLOPIAN TUBE. Modifiers: right . 01 Clinical history: . None provided . 02 Diagnosis: A. Left tubal ligation: - Segment of fallopian tube confirmed. . B. Right tubal ligation: - Segment of fallopian tube confirmed. (JPM/db; 12/13/2019) [facility] 12/13/2019 1219 Local . 02 Electronically signed: . Estuardo Tafoya MD, Pathologist NPI- [id number] . 01 Gross description: . A. The specimen is received in formalin, labeled "Dee Wilson, left fallopian tube". Received is a fimbriated fallopian tube measuring 4.3 cm in length by 0.7 cm in diameter. The serosal surface is pink-carrington and shaggy in appearance. Sectioning reveals a patent lumen. The specimen is submitted representatively in cassette A1. . B. The specimen is received in formalin, labeled "Dee Wilson, right fallopian tube". Received is a fimbriated fallopian tube measuring 4.2 cm in length by 0.6 cm in diameter. The serosal surface is pink-purple and smooth in appearance. Sectioning reveals a patent lumen. The specimen is submitted representatively in cassette B1. (CAA; 12/12/2019) QAC/QAC 12/12/2019 1813 Local . 02 Pathologist provided ICD-10: Z30.2 . 02 CPT . 482649, [id number] Specimen Comment: A courtesy copy of this report has been sent to [phone] Specimen Comment: Report sent to Performed at: 01 [facility] [address] [facility] [address], [place], [place] [id number] MD Jesús Frances MD Phone: [phone] Performed at: 02 [facility] [address] [place], [place] [id number] MD Estuardo Tafoya MD Phone: [phone]
== END 2019-12-12 13:55 | disposition home or self-care (01) ==
LOC: SURG 07:40
PROVIDERS: ATTEND Obstetrics & Gynecology
DX: Z30.2 Encounter for sterilization (principal); I10 Essential (primary) hypertension; E66.9 Obesity, unspecified; Z68.39 Body mass index [BMI] 39.0-39.9, adult
CPT/HCPCS: 58670; 81025; A7015; J1100; J1885; J2001; J2250; J2405; J2704; J2710; J3010; J3490